=== PATIENT | male | born 1960 | race Hispanic/Latino ===

== ENCOUNTER 2019-11-13 10:36 | Inpatient (IN) | payer OTHER ==
[~2019-11-13] VITALS: Ht 170.2 cm; Wt 89.2 kg
[2019-11-13] MEDS ORDERED: METF-839 PO (10:49)
[2019-11-13] MEDS ORDERED: GENV1TAB PO (10:49)
[2019-11-13] MEDS ORDERED: COZA50TA PO (10:49)
[2019-11-13] MEDS ORDERED: AMLO25TA PO (10:49)
[2019-11-13] MEDS ORDERED: PROV108A INH (10:49)
[2019-11-13] MEDS ORDERED: DILT180C78 PO (10:49)
[2019-11-13] MEDS ORDERED: ASPI81CH33 PO (10:49)
[2019-11-13] MEDS ORDERED: NS 2,610 ML in IV 1 EA IV ONE (11:30)
[2019-11-13 11:39] LABS: HEMATOCRIT 46.1 % (42.0-52.0); HEMOGLOBIN 15.4 g/dl (13.5-17.5); MEAN CORPUSCULAR HEMOGLOBIN 27.2 pg (27.0-33.0); MEAN CORPUSCULAR HGB CONC 33.4 g/dl (32.0-36.5); MEAN CORPUSCULAR VOLUME 81.4 fl (80.0-96.0); PLATELET COUNT, AUTOMATED 182 10^3/uL (150-450); RED BLOOD COUNT 5.66 10^6/uL (4.30-6.10); WHITE BLOOD COUNT 24.8 10^3/uL (4.0-10.0)
--- NOTE | 2019-11-13 12:06 | REP ---
Right lower extremity Duplex Doppler venous ultrasound: Real time compression and duplex Doppler interrogation of the right lower extremity deep venous system is performed. The right common femoral, superficial femoral and popliteal veins are fully compressible with transducer pressure and demonstrate normal spontaneous and phasic flow, without evidence of deep venous thrombosis. Impression: No evidence of deep venous thrombosis of the right lower extremity femoral popliteal venous system. Multiple lymph nodes are seen in the right inguinal region, all demonstrating fatty yane. The largest measures 4.5 x 1.4 x 3.2 cm. Electronically Signed by Wiliam Gonzales MD 11/13/2019 11:57 A
[2019-11-13 12:08] LABS: ERYTHROCYTE SEDIMENTATION RATE 50 mm/hr (0-20)
[2019-11-13 12:19] LABS: LYMPHOCYTES 6 % (16-44); MONOCYTES 1 % (0-5); NEUTROPHILS 91 % (28-66); PLATELET ESTIMATE NORMAL (NORMAL)
[2019-11-13 12:20] LABS: BLOOD UREA NITROGEN 24 MG/DL (7-18); CALCIUM LEVEL 8.4 MG/DL (8.5-10.1); CARBON DIOXIDE LEVEL 25 MEQ/L (21-32); CHLORIDE LEVEL 99 MEQ/L (98-107); CREATININE FOR GFR 1.13 MG/DL (0.70-1.30); GLOMERULAR FILTRATION RATE > 60.0 (>56); GLUCOSE, FASTING 260 MG/DL (70-100); POTASSIUM SERUM 3.2 MEQ/L (3.5-5.1); SODIUM LEVEL 133 MEQ/L (136-145)
[2019-11-13] MEDS ORDERED: VANCOMYCIN HCL 1,000 MG, VIAL MATE ADAPTER 1 EACH in D5W 250 ML IV ONE (12:30)
[2019-11-13] MEDS ORDERED: VANCOMYCIN HCL 1,750 MG in D5W 250 ML IV ONE (12:30)
[2019-11-13] MEDS ORDERED: VANCOMYCIN HCL 750 MG, VIAL MATE ADAPTER 1 EACH in D5W 250 ML IV ONE (12:30)
[2019-11-13] MEDS ORDERED: METOPROLOL 5 MG/5 ML VIAL IV STA (12:32)
[2019-11-13] MEDS ORDERED: CEFT1INJ5 IM (12:44)
[2019-11-13] MEDS ORDERED: AMLO1TAB25 PO (12:44)
[2019-11-13] MEDS ORDERED: ACET-908 PO (12:44)
[2019-11-13] MEDS ORDERED: IBUP200T45 PO (12:44)
[2019-11-13] MEDS ORDERED: DILT12SRCA PO (12:44)
[2019-11-13] MEDS ORDERED: ASPI32ECTA PO (12:44)
[2019-11-13] MEDS ORDERED: ALBUTEROL 90 MCG/ACT 8GM HFA INHALER INH PRN (12:45)
[2019-11-13] MEDS ORDERED: GLUCAGON INJ 1MG VIAL SC PRN (12:45)
[2019-11-13] MEDS ORDERED: GLUCOSE 4GM CHEW TABLET PO PRN (12:45)
[2019-11-13] MEDS ORDERED: POTASSIUM CHLORIDE 10 MEQ SR TABLET PO ONE (12:45)
[2019-11-13] MEDS ORDERED: DEXTROSE 50% 50 ML SYRINGE IV PRN (12:45)
[2019-11-13] MEDS ORDERED: NS 1,000 ML IV SCH (12:45)
[2019-11-13] MEDS ORDERED: NS 1,000 ML IV ONE (12:45)
[2019-11-13 12:59] LABS: INR 1.07; PROTHROMBIN TIME 13.6 SECONDS (11.8-14.0)
[2019-11-13 13:00] LABS: PARTIAL THROMBOPLASTIN TIME 29.8 SECONDS (25.0-38.4)
[2019-11-13 13:26] LABS: CK-MB VALUE MASS 3.7 NG/ML (<3.6); CPK CREATINE PHOSPHOKINASE 575 U/L (39-308); MB/CK RELATIVE INDEX 0.64 (< OR =4); NT-PRO BNP 4008 PG/ML (<125); TROPONIN I < 0.02 NG/ML (< 0.10)
--- NOTE | 2019-11-13 14:03 | PHACANCOPD ---
PHARMACY VANCOMYCIN DOSING Pt Demographics Demographics Patient Age:59 , Weight:86.900 , Gender: male Adjusted Body Weight Date: 11/13/19, Adjusted Body Weight: Kg Events Past 24 Hours Events Past 24 Hours: NO: Dialysis, Diuretic Therapy, Change in CrCl, Fever, Elevation in WBC, Pending Diagnostics, Pending Procedures, Other Vancomycin Vancomycin indication: right leg cellulitis Vancomycin Target Ranges: 10-20 mcg/ml Vancomycin Load Y/N: Yes Load Dose Date Time Vancomycin Load Dose: 1.75g Date:11/13/19 Time:12:30 Vancomycin Dose Date: 11/13/19. Current Vancomycin Dose: [1g iv q12h] Intermittent Dosing?: No Labs Labs Item Value Date Time White Blood Count 24.8 10^3/uL H 11/13/19 1120 Creatinine 1.13 MG/DL 11/13/19 1120 C-Reactive Protein, Quantitative 25.90 MG/DL H 11/13/19 1120 Micro Microbiology 11/13/19 Blood Culture, Received Pending 11/13/19 Blood Culture, Received Pending Creatinine Clearance Date:11/13/19. Creatinine Clearance: [65ml/min]. Assessment and Plan Maintaining Current Dose?: Yes Reason for dose change: No Dose Change Pharmacist Note Pharmacist Note Date: 11/13/19. Pharmacist note: PT is a 59 year old male being treated for right leg cellulitis goal trough 10-20mcg/ml. The patient has not been treated with vancomycin her at [facility] in the past. To achieve goal a 1.75g loading dose was started in the ER today @12:30. Maintenance therapy will consist of 1g IV every 12 hours starting 11/13 @01:00. We will continue to monitor and adjust the dose as needed. LASHELL ENRIQUEZ [facility]ARM[facility] Nov 13, 2019 14:03
[2019-11-13 14:30] VITALS: BP 124/69
--- NOTE | 2019-11-13 14:44 | HPE ---
DATE OF ADMISSION: 11/13/2019 CHIEF COMPLAINT: Right leg pain, swelling, and redness. HISTORY OF PRESENTING ILLNESS: This is a 59-year-old male with history of atrial fibrillation, chronic left bundle branch block, mild MR, TR with normal left ventricle (LV) function on echocardiogram January 2019, asthma, diabetes, HIV, hepatitis C, noncompliant with medications, smoker, hypertension. Currently resides at the [facility] when he noted on Monday to have increasing redness, pain, and swelling of the right leg, which started by the malleolus and started to spread upwards, now involving the entire leg up to the knee. The patient said that there was increased weeping and drainage on the medial aspect of the leg. He was started in intramuscular Rocephin on 11/11/2019 but has had no significant improvement. He denied any fever or chills. At the facility, had not taken any pain medications. He said that it was pruritic, and he did scratch the area. He had a similar episode last year, where he was treated with oral antibiotics for 7 days, and abated. The patient had been walking with a cane due to difficulty with pain and bearing weight on it. He otherwise denies any purulent drainage at the site. The patient otherwise denies any chills, shortness of breath, chest pain, pressure, tightness, lightheadedness, or dizziness. Denies any diarrhea, nausea, vomiting, dysuria, urgency, frequency, polydipsia, polyphagia, changes in vision, rhinorrhea, depression, insomnia. All other systems otherwise negative. In the emergency room (ER), he was noticed to have a white count of 24.8, afebrile, sedimentation rate of 50, lactic acid of 2.5, CRP of 25.9. The patient was admitted for right lower extremity cellulitis. Ultrasound was negative for a deep venous thrombosis (DVT). PAST MEDICAL HISTORY: Mild MR. Mild TR. Left bundle branch block, chronic. Chronic atrial fibrillation. Asthma. Diabetes. HIV. Hepatitis. Active smoker. Hypertension. PAST SURGICAL HISTORY: None. SOCIAL HISTORY: Currently lives at the [facility] as an inmate. Has been smoking cigarettes, a pack a day since the age of 14. Currently, 2-3 cigarettes. Uses recreational heroin. 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 ALLERGIES: No known drug allergies. HOME MEDICATIONS: - Norvasc 10 mg daily - ceftriaxone 1 gram intramuscular (IM) daily - ibuprofen 600 every 6 as needed - losartan 50 daily - metformin 500 twice a day - diltiazem 120 twice a day - Genvoya one tablet daily - acetaminophen 650 four times a day as needed - proventil two puffs inhaled four times a day as needed - aspirin 325 daily FAMILY HISTORY: Mother age 50, unknown medical problems. Three brothers, three sisters in [place], unknown medical problems. Father alive at the age of 85 with diabetes and hypertension, lives in [place]. REVIEW OF SYSTEMS: Per history of present illness (HPI); 12-point system otherwise negative. PHYSICAL EXAMINATION: Temperature is 96.8, pulse 69, respiratory rate 22, blood pressure 91/60, 100% on room air. Generally, the patient is awake, alert, oriented to person, place, and time. Answering questions appropriately. Anicteric sclerae. No jaundice. No cervical lymphadenopathy, thyromegaly, or jugular venous distention. Dry mucous membranes. Multiple tattoos around the neck, bilateral upper extremities. LUNGS: Are clear to auscultation. No wheezing, rales, or rhonchi. Air entry is equal. No adventitious breath sounds. HEART: S1, S2, irregularly irregular and tachycardic. No murmurs, rubs, or gallops noted. ABDOMEN: Is soft, nontender, nondistended. Positive bowel sounds in his four quadrants. No hepatosplenomegaly, abdominal bruits, or fluid wave. EXTREMITIES: 2+ pitting edema right lower extremity with erythema, serosanguineous drainage along with open venous ulcers on the jim. Left lower extremity has 1+ pitting edema and chronic venous stasis dermatitis. LABORATORY DATA: White count 24.8, hemoglobin 15, hematocrit 46, platelet count 182, 91% neutrophils, 2 bands, sedimentation rate of 50. Sodium 133, potassium 3.2, chloride 99, bicarbonate 25, BUN 24, creatinine 1.13, glucose 260, lactic acid 2.5, calcium 8.4, total CK 575, MB fraction 3.7, troponin less than 0.02, CRP of 25.9. INR 1.07. Blood cultures pending. Venous Doppler: No DVT of the lower extremity. Multiple lymph nodes seen in right inguinal region, all demonstrating fatty yane measuring 4.5 x 1.[address] of right tibia/fibula without contrast: Pending report. ASSESSMENT AND PLAN: This is a 59-year-old diabetic, chronic atrial fibrillation (AFib), mild MR, TR, chronic left bundle, asthma, type 2 diabetes, HIV, hepatitis C, smoker, hypertension, correctional facility inmate at [place], presents with 4-day history of worsening erythema, tenderness, and swelling of the right lower extremity, treated with intramuscular Rocephin since 11/11/2019, 1 gram daily, with no improvement. IMPRESSION: 1. Sepsis secondary to right lower extremity cellulitis. The patient had received 3 days of IM Rocephin without any improvement. Currently, on intravenous (IV) vancomycin, managed by pharmacy. Strict intake and output (I and O), daily weights, and daily medical panel to adjust renally if needed. Methicillin-resistant Staphylococcus aureus (MRSA) and polymerase chain reaction (PCR) screen have been ordered. Downgrade to cefazolin if MRSA negative or nafcillin. The patient has no known drug allergies. Continue to monitor for improvement. Elevate the lower extremity on two pillows at all times when the patient is supine. Activity as tolerated. For pain control, IV Toradol with intravenous fluids. 2. Atrial fibrillation with rapid ventricular response (RVR). The patient had not taken his Cardizem and was noncompliant at the detention. He is continued on aspirin 325 daily. Will hold off on the patient's Norvasc due to needing to rate control his atrial fibrillation (AFib) for now. Telemetry monitoring. Once blood pressure is higher than 140, will resume the patient's Norvasc and losartan. 3. Type 2 diabetes. Check A1c. Continue on sliding scale for now. Levemir insulin 10 units daily. Hold for a sugar less than 150. Consistent- carbohydrate diet. Insulin sliding scale. Fingersticks before food and nightly. Adjust long-acting insulin as needed. Check A1c, lipid profile in the morning and thyroid-stimulating hormone (TSH). 4. Active smoking. Tobacco cessation counseling. Nicotine patch. 5. History of heroin use. Cessation counseling has been provided. Outpatient rehabilitation once the patient is released from detention. 6. Deep venous thrombosis prophylaxis. Currently just on aspirin. Will give Lovenox 40 subcutaneous daily. Activity as tolerated. CODE STATUS: Is FULL CODE. DIET: Is consistent-carbohydrate. MTDD
[2019-11-13] MEDS: NICOTINE 7 MG/24 HR TRANSDERMAL TD SCH (14:48)
[2019-11-13] MEDS: ENOXAPARIN 40MG/0.4ML SYRINGE (J1650 PER 10MG) SC SCH (14:48)
--- NOTE | 2019-11-13 16:07 | REP ---
CT RIGHT LOWER LEG: CT right lower leg performed in the axial plane without contrast. Sagittal and coronal reconstruction images are performed. There is mild narrowing of the medial knee joint. There is mild calcification at the superior and inferior poles of the patella at tendinous insertion sites. There appear to be old avulsion fractures of the medial and lateral malleoli. The ankle mortise is anatomic. No acute fracture or dislocation is seen. There is no evidence of osseous destruction or periosteal reaction. There is diffuse soft tissue edema. I suspect diffuse cellulitis. No focal fluid collection is seen. Electronically Signed by Wiliam Gonzales MD 11/14/2019 09:35 A
[2019-11-13] MEDS: HumaLOG INSULIN (NovoLOG) PER UNIT SC SCH ×2 (17:16→19:58)
[2019-11-13] MEDS: KETOROLAC 30 MG/ML 1ML VIAL IV PRN (19:57)
[2019-11-13] MEDS ORDERED: LEVEMIR (INSULIN DETEMIR) 1 UNITS/0.01ML SC SCH (21:00)
[2019-11-13 22:00] VITALS: BP 129/72
[2019-11-13] MEDS: UNRESOLVED PATIENT OWN MED ORDER XX SCH (22:51)
--- NOTE | 2019-11-13 23:27 | REP ---
REASON: Dyspnea. PRIORS: None. The technique utilized in obtaining the radiograph has magnified the cardiac silhouette and accentuated the interstitial markings. There is cardiomegaly, accentuated by technique. The interstitial markings are mildly diffusely increased, accentuated by technique. There are no patchy opacities or pleural effusions seen on this limited portable exam. The osseous structures are within normal limits. IMPRESSION: Cardiomegaly. Interstitial markings as described above. I cannot rule out the possibility of mild interstitial edema. Upright PA and lateral views of the chest are recommended. Electronically Signed by Timur Boyd DO 11/14/2019 11:24 A
--- NOTE | 2019-11-14 00:19 | ECGEPIP ---
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
[2019-11-14] MEDS ORDERED: VANCOMYCIN HCL 1,000 MG, VIAL MATE ADAPTER 1 EACH in D5W 250 ML IV SCH (01:00)
[2019-11-14] MEDS: KETOROLAC 30 MG/ML 1ML VIAL IV PRN ×3 (01:59→21:26)
[2019-11-14 06:00] VITALS: BP 132/88
[2019-11-14 06:20] LABS: HEMATOCRIT 37.6 % (42.0-52.0); MEAN CORPUSCULAR HEMOGLOBIN 27.3 pg (27.0-33.0); MEAN CORPUSCULAR HGB CONC 33.5 g/dl (32.0-36.5); MEAN CORPUSCULAR VOLUME 81.4 fl (80.0-96.0); PLATELET COUNT, AUTOMATED 185 10^3/uL (150-450); RED BLOOD COUNT 4.62 10^6/uL (4.30-6.10)
[2019-11-14 06:25] LABS: HEMOGLOBIN 12.6 g/dl (13.5-17.5)
[2019-11-14 06:48] LABS: BLOOD UREA NITROGEN 14 MG/DL (7-18); CALCIUM LEVEL 7.4 MG/DL (8.5-10.1); CARBON DIOXIDE LEVEL 26 MEQ/L (21-32); CHLORIDE LEVEL 105 MEQ/L (98-107); CHOLESTEROL LEVEL 113 MG/DL (<200); CHOLESTEROL RISK RATIO 10.272 (<5); CREATININE FOR GFR 0.81 MG/DL (0.70-1.30); GLOMERULAR FILTRATION RATE > 60.0 (>56); GLUCOSE, FASTING 219 MG/DL (70-100); HDL CHOLESTEROL 11 MG/DL (>40); LDL CHOLESTEROL 68 MG/DL (<100); NON-HDL-C 102 MG/DL; POTASSIUM SERUM 3.3 MEQ/L (3.5-5.1); SODIUM LEVEL 139 MEQ/L (136-145); THYROID STIMULATING HORMONE 0.841 uIU/ML (0.358-3.740); TRIGLYCERIDES LEVEL 169 MG/DL (<150)
[2019-11-14 06:58] LABS: ATYPICAL LYMPH 5 % (0-5); LYMPHOCYTES 11 % (16-44); MONOCYTES 4 % (0-5); NEUTROPHILS 77 % (28-66)
[2019-11-14 06:59] LABS: PLATELET ESTIMATE NORMAL (NORMAL)
[2019-11-14 07:00] LABS: DOHLE BODIES 1+; TOXIC GRANULATION 1+
[2019-11-14 07:09] LABS: HEMOGLOBIN A1c 9.6 %
[2019-11-14] MEDS: HumaLOG INSULIN (NovoLOG) PER UNIT SC SCH ×4 (07:30→20:59)
[2019-11-14 07:33] LABS: MAGNESIUM LEVEL 1.7 MG/DL (1.8-2.4)
[2019-11-14] MEDS: ASPIRIN ENTERIC 325 MG TAB PO SCH (08:00)
[2019-11-14] MEDS ORDERED: metFORMIN (GLUCOPHAGE) 500 MG TAB PO SCH (08:00)
[2019-11-14] MEDS: ENOXAPARIN 40MG/0.4ML SYRINGE (J1650 PER 10MG) SC SCH (08:06)
[2019-11-14] MEDS: NICOTINE 7 MG/24 HR TRANSDERMAL TD SCH (08:07)
[2019-11-14] MEDS ORDERED: POTASSIUM CHLORIDE 10 MEQ SR TABLET PO ONE (09:00)
--- NOTE | 2019-11-14 10:45 | IPNPDOC ---
Text Note Date of Service The patient was seen on 11/14/19. NOTE Subjective: Patient seen and examined at bedside. No new medical complaints. Denies any numbness or weakness with his RLE. He denies any trauma to his RLE, feels this may have started with a spider bite. Objective: General: NAD, lying comfortably in bed HEENT: NC/AT, EOMI Lungs: CTA B/L Heart: +S1S2, RRR Abd: soft, NT, +BS Ext: diffuse RLE cellulitis with purulent discharge A/P: 59 yo male, currently incarcerated at [facility], presents for one week history worsening RLE cellulitis with purulent discharge. Started on IM Rocephin 11/11/19 with no improvement. Denies trauma, possibility of spider bite. PMHx a-fib, LBBB, DM, asthma, HIV, hep C, medical non-compliance, nicotine abuse, HTN. # Sepsis/RLE cellulitis - continue IV Vancomycin - wound cultures/gram stain pending - ID c/s pending - trend ESR/CRP - IV fluids #afib/RVR - patient had not taken his Cardizem and [facility] the [facility] - continue CCB - continue ASA 325 he has been receiving for a/c - telemetry monitoring #DM - A1C noted - poor glucose control - Continue on sliding scale for now - reported patient refuses insulin therapy #nicotine abuse - Tobacco cessation counseling. Nicotine patch. #History of heroin use. Cessation counseling has been provided. Outpatient rehabilitation #DVT prophylaxis VS,Fishbone, I+O VS, Fishbone, I+O Laboratory Tests 11/13/19 11:20 11/14/19 05:46 Vital Signs Date Time Temp Pulse Resp B/P (MAP) Pulse Ox O2 Delivery O2 Flow Rate FiO2 11/14/19 08:01 122 137/90 11/14/19 06:00 98.0 18 99 Room Air I&O- Last 24 Hours up to 6 AM 11/14/19 06:00 Intake Total 3725 ml Output Total 400 ml Balance 3325 ml JUAN LUIS EPSTEIN MD Nov 14, 2019 10:45
[2019-11-14] MEDS ORDERED: MAG SULF 1GM/100ML (MAG RUN) 1 GM in IV 1 EA IV ONE (11:00)
--- NOTE | 2019-11-14 13:10 | ECGEPIP ---
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
[2019-11-14] MEDS: VANCOMYCIN HCL 1,000 MG, VIAL MATE ADAPTER 1 EACH in D5W 250 ML IV SCH ×2 (13:49→22:11)
[2019-11-14 14:00] VITALS: BP 136/89
[2019-11-14] MEDS ORDERED: VANCOMYCIN HCL 500 MG in D5W MINI-BAG PLUS 100 ML IV ONE (15:00)
[2019-11-14 22:00] VITALS: BP 159/96
[2019-11-15] MEDS: UNRESOLVED PATIENT OWN MED ORDER XX SCH ×2 (00:01→23:02)
[2019-11-15 06:00] VITALS: BP 138/79
[2019-11-15] MEDS: VANCOMYCIN HCL 1,000 MG, VIAL MATE ADAPTER 1 EACH in D5W 250 ML IV SCH ×3 (06:05→21:59)
[2019-11-15 06:09] LABS: HEMATOCRIT 37.6 % (42.0-52.0); HEMOGLOBIN 12.5 g/dl (13.5-17.5); MEAN CORPUSCULAR HEMOGLOBIN 27.5 pg (27.0-33.0); MEAN CORPUSCULAR HGB CONC 33.2 g/dl (32.0-36.5); MEAN CORPUSCULAR VOLUME 82.6 fl (80.0-96.0); PLATELET COUNT, AUTOMATED 211 10^3/uL (150-450); RED BLOOD COUNT 4.55 10^6/uL (4.30-6.10); WHITE BLOOD COUNT 15.5 10^3/uL (4.0-10.0)
[2019-11-15 06:28] LABS: BLOOD UREA NITROGEN 7 MG/DL (7-18); CALCIUM LEVEL 7.9 MG/DL (8.5-10.1); CARBON DIOXIDE LEVEL 26 MEQ/L (21-32); CHLORIDE LEVEL 103 MEQ/L (98-107); CREATININE FOR GFR 0.64 MG/DL (0.70-1.30); GLOMERULAR FILTRATION RATE > 60.0 (>56); GLUCOSE, FASTING 210 MG/DL (70-100); SODIUM LEVEL 136 MEQ/L (136-145)
[2019-11-15 06:56] LABS: EOSINOPHILS 2 % (0-3); LYMPHOCYTES 11 % (16-44); MONOCYTES 4 % (0-5); NEUTROPHILS 82 % (28-66); PLATELET ESTIMATE NORMAL (NORMAL)
[2019-11-15] MEDS: HumaLOG INSULIN (NovoLOG) PER UNIT SC SCH ×4 (07:30→21:00)
[2019-11-15 07:53] LABS: MAGNESIUM LEVEL 1.6 MG/DL (1.8-2.4)
[2019-11-15] MEDS: ASPIRIN ENTERIC 325 MG TAB PO SCH (08:39)
[2019-11-15] MEDS: MAG SULF 1GM/100ML (MAG RUN) 1 GM in IV 1 EA IV SCH ×2 (08:39→10:09)
[2019-11-15] MEDS: KETOROLAC 30 MG/ML 1ML VIAL IV PRN ×2 (08:40→18:20)
[2019-11-15] MEDS: ENOXAPARIN 40MG/0.4ML SYRINGE (J1650 PER 10MG) SC SCH (08:40)
[2019-11-15] MEDS: NICOTINE 7 MG/24 HR TRANSDERMAL TD SCH (08:40)
[2019-11-15] MEDS ORDERED: POTASSIUM CHLORIDE 10 MEQ SR TABLET PO ONE (09:00)
--- NOTE | 2019-11-15 12:56 | IPNPDOC ---
Text Note Date of Service The patient was seen on 11/15/19. NOTE Subjective: Patient seen and examined at bedside. No new medical complaints. Denies any numbness or weakness with his RLE. Notes poor appetite. Fevers overnight. Objective: General: NAD, lying comfortably in bed HEENT: NC/AT, EOMI Lungs: CTA B/L Heart: +S1S2, RRR Abd: soft, NT, +BS Ext: bandages in place RLE; appears to have extended slightly past previously demarcated area A/P: 59 yo male, currently incarcerated at [facility], presents for one week history worsening RLE cellulitis with purulent discharge. Started on IM Rocephin 11/11/19 with no improvement. Denies trauma, possibility of spider bite. PMHx a-fib, LBBB, DM, asthma, HIV, hep C, medical non-compliance, nicotine abuse, HTN. # Sepsis/RLE cellulitis - continue IV Vancomycin - repeat wound cultures/gram stain pending - ID c/s appreciated - trend ESR/CRP - IV fluids #afib/RVR - patient had not taken his Cardizem and was noncompliant at the longterm - continue CCB - continue ASA 325 he has been receiving for a/c - telemetry monitoring #DM - A1C noted - poor glucose control - Continue on sliding scale for now - reported patient refuses insulin therapy #nicotine abuse - Tobacco cessation counseling. Nicotine patch. #History of heroin use. Cessation counseling has been provided. Outpatient rehabilitation #DVT prophylaxis VS,Fishbone, I+O VS, Fishbone, I+O Laboratory Tests 11/15/19 05:31 Vital Signs Date Time Temp Pulse Resp B/P (MAP) Pulse Ox O2 Delivery O2 Flow Rate FiO2 11/15/19 08:39 112 138/79 11/15/19 06:00 100.0 18 97 Room Air I&O- Last 24 Hours up to 6 AM 11/15/19 05:59 Intake Total 1790 ml Output Total 0 ml Balance 1790 ml JUAN LUIS EPSTEIN MD Nov 15, 2019 12:56
[2019-11-15] MEDS: NS 1,000 ML IV SCH (13:47)
[2019-11-15 14:00] VITALS: BP 132/79
[2019-11-15] MEDS ORDERED: VANCOMYCIN HCL 1,000 MG, VIAL MATE ADAPTER 1 EACH in D5W 250 ML IV ONE (15:00)
--- NOTE | 2019-11-15 17:32 | CR ---
DATE OF CONSULTATION: 11/14/2019 REASON FOR CONSULTATION: HIV and right lower extremity cellulitis. HISTORY OF PRESENT ILLNESS: Mr. Church is a 59-year-old inmate from [facility]. The patient has developed right lower extremity cellulitis with increased pain and redness, difficulty stepping on his foot since last Monday. The patient usually is able to exercise and to push-ups. He noticed increased redness, weeping and drainage. He received three intramuscular (IM) injections of Rocephin on 11/11/2019 though 11/13/2019 without any improvement. He denied having any fever or chills. The patient stated his leg was pruritic. He is not sure if he had any bites. He stated he had a similar episode about a year ago which resolved after seven days of antibiotic but this is much worse. He has no history of deep vein thromboses (DVTs). The patient had so much pain he had to walk with a cane. He denied any chest pain or shortness of breath. No headache. No nausea, vomiting or diarrhea. No urinary symptoms. White count was quite elevated at 25,000 on admission. PAST MEDICAL HISTORY: Significant for: 1. HIV, well-controlled, diagnosed in 1985, states his CD-4 count is over 1000 on Genvoya. 2. Mitral regurgitation and tricuspid regurgitation with normal ejection fraction and a chronic left bundle branch block. 3. Chronic atrial fibrillation. 4. Asthma. 5. Diabetes. 6. History of hepatitis C. 7. Tobacco abuse. 8. Hypertension. PAST SURGICAL HISTORY: None. SOCIAL HISTORY: He lives at [facility]. He smokes a pack a day of cigarettes since the age of 14, currently smokes 2-3 cigarettes. History of heroin abuse. 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 ALLERGIES: No known drug allergies. MEDICATIONS: - Norvasc 10 mg daily - ibuprofen 600 mg every six hours as needed - losartan 50 mg daily - metformin 500 mg twice a day - diltiazem 120 mg twice a day - Genvoya one tablet daily - Tylenol as needed - Proventil two puffs inhaled every four hours as needed - aspirin 325 mg daily FAMILY HISTORY: Mother at age of 50. Brothers and sisters are in [place]. Father has hypertension and diabetes. REVIEW OF SYSTEMS: Other than leg pain and difficulty walking, the patient has no other symptoms that he complained about. PHYSICAL EXAMINATION: Healthy-looking, [place] gentleman in no acute distress. VITAL SIGNS: Temperature is 99.2, pulse 116, respirations 20, blood pressure 136/89, oxygen saturation 96% on room air. HEART: Normal S1, S2, distant, irregular. No murmurs appreciated, rubs or gallops. Lungs have few exterior rhonchi bilaterally. No wheezes or rales. ABDOMEN: Soft, nontender. No hepatosplenomegaly. BACK: No costovertebral angle (CVA) or lumbosacral tenderness. EXTREMITIES: Left leg has chronic venous stasis changes but no clubbing, cyanosis or edema, +2 dorsalis pedis pulses bilaterally. Right leg has no significant swelling up to the knee with erythema and serosanguineous discharge. There are open areas from significant, oozing. There is no ulcer noted but he has vertical cracks throughout from the edema. LABORATORY DATA: White count of 17, hemoglobin 12.6, hematocrit 37.6, platelets 185, 77% neutrophils, 3% bands, 11% lymphocytes. ESR 50. Sodium 139, potassium 3.3, chloride 105, bicarbonate 26, BUN 14, creatinine 0.81, glucose 219, hemoglobin A1c 9.6, lactic acid on admission was 2.5, currently 1.6, calcium 7.4, magnesium 1.7. Blood cultures two sets are no growth after 24 hours. Gram-stain has a few epithelial cells. No organisms seen. Culture is pending. Extremity CT done on 11/13/2019 showed no acute fracture or dislocation. No osseous destruction. No periosteal reaction, just soft tissue edema. IMPRESSION: This is a 59-year-old gentleman with HIV, diabetes who has a history of lower extremity cellulitis a year ago and now presents with a recurrent episode that did not respond to intramuscular ceftriaxone for three days. Possibility of methicillin-resistant Staphylococcus aureus (MRSA). The patient is on IV vancomycin at a dose of 1 gram every eight hours. I agree with that choice. His MRSA screen is negative but this is possibly MRSA infection. PLAN: Continue with IV vancomycin 1 gram every eight hours. Wait for results of wound culture and depending on that antibiotic choice will be decided. Continue from an HIV standpoint on Genvoya one tablet daily. The patient's CD-4 count is over 1000. This does not need to further workup or laboratories while he is in the hospital. The case has been discussed with Dr. Dorantes who has agreed with the plan. As far as dressing change, I recommended we use an OptiLock and Coban dressing to avoid scratching, allow for drainage and decreased swelling with the Coban.
[2019-11-15 22:00] VITALS: BP 133/82
--- NOTE | 2019-11-15 23:32 | IPN ---
DATE: 11/15/2019 The patient is doing slightly better today, but he complains of decreased appetite since he has been sick. He has had no nausea, vomiting or diarrhea but just fullness. He had a maximum temperature (T max) of 101.1 yesterday. Pain in his right leg persists. The dressing was changed a half hour before I got to the room and therefore, was not able to see his right lower extremity. Hip and knee range of motion normal. Ankle range of motion normal. LABORATORY DATA: White count is 15.5 down from 25,000, hemoglobin 12.5, hematocrit 37.6, platelets 211, 82% neutrophils, 11% lymphocytes. Sodium 136, potassium 3, chloride 103, bicarbonate 26, BUN 7, creatinine 0.64, glucose 210, calcium 7.9, magnesium 1.6, CRP 12.4 down from 25.9. Wound culture is pending from 11/13 and a repeat wound culture was done today again. Blood cultures times two sets are no growth after 24 hours. On physical exam, temperature is 100, pulse 112, respirations 18, blood pressure 138/79, oxygen saturation (O2 sat) 97% on room air. Heart: Normal S1, S2, irregular. No murmurs appreciated. Lungs: Clear. No wheezes, rales or rhonchi. Abdomen: Morbidly obese, soft, nontender. Back: No costovertebral angle tenderness. Extremities: Knee range of motion normal. Mild erythema along the medial thigh, diffuse erythema below the knee to the ankle, +2 dorsalis pedis pulses bilaterally. IMPRESSION: 1. Right lower extremity cellulitis, on IV vancomycin. Had failed 3 days of intramuscular (IM) Rocephin at the longterm. Wound culture still pending. CBC and CRP improving. Continue current management. 2. History of HIV with CD-4 count over 1000 and undetected viral load. Doing well on Genvoya. The patient has not received his medication since it is not available. 3. History of chronic hepatitis C, treated with Harvoni over 3 years ago while he was in [facility]. PLAN: Continue IV vancomycin 1 gram every 8 hours. Vancomycin trough was 4.8 on 11/14/2019 and therefore dose was increased. Monitor culture. Depending on results, will decide on home antibiotics.
[2019-11-16] MEDS: KETOROLAC 30 MG/ML 1ML VIAL IV PRN ×4 (02:28→21:14)
[2019-11-16] MEDS: VANCOMYCIN HCL 1,000 MG, VIAL MATE ADAPTER 1 EACH in D5W 250 ML IV SCH ×3 (05:32→20:01)
[2019-11-16 06:00] VITALS: BP 134/87
[2019-11-16 06:32] LABS: HEMATOCRIT 37.9 % (42.0-52.0); HEMOGLOBIN 12.2 g/dl (13.5-17.5); MEAN CORPUSCULAR HEMOGLOBIN 26.8 pg (27.0-33.0); MEAN CORPUSCULAR HGB CONC 32.2 g/dl (32.0-36.5); MEAN CORPUSCULAR VOLUME 83.3 fl (80.0-96.0); PLATELET COUNT, AUTOMATED 232 10^3/uL (150-450); RED BLOOD COUNT 4.55 10^6/uL (4.30-6.10); WHITE BLOOD COUNT 13.2 10^3/uL (4.0-10.0)
[2019-11-16 06:45] LABS: BLOOD UREA NITROGEN 7 MG/DL (7-18); CALCIUM LEVEL 7.7 MG/DL (8.5-10.1); CARBON DIOXIDE LEVEL 28 MEQ/L (21-32); CHLORIDE LEVEL 103 MEQ/L (98-107); CREATININE FOR GFR 0.72 MG/DL (0.70-1.30); GLOMERULAR FILTRATION RATE > 60.0 (>56); GLUCOSE, FASTING 183 MG/DL (70-100); MAGNESIUM LEVEL 1.7 MG/DL (1.8-2.4); POTASSIUM SERUM 3.6 MEQ/L (3.5-5.1); SODIUM LEVEL 136 MEQ/L (136-145)
[2019-11-16] MEDS: NS 1,000 ML IV SCH (06:55)
[2019-11-16] MEDS: HumaLOG INSULIN (NovoLOG) PER UNIT SC SCH ×4 (07:16→21:00)
[2019-11-16 07:28] LABS: ATYPICAL LYMPH 2 % (0-5); LYMPHOCYTES 14 % (16-44); METAMYELOCYTES 1 % (0-0); MONOCYTES 5 % (0-5); NEUTROPHILS 73 % (28-66)
[2019-11-16 07:29] LABS: PLATELET ESTIMATE NORMAL (NORMAL)
[2019-11-16 07:30] LABS: ANISOCYTOSIS 1+
[2019-11-16] MEDS: MAG SULF 1GM/100ML (MAG RUN) 1 GM in IV 1 EA IV SCH ×2 (08:33→10:10)
[2019-11-16] MEDS: ENOXAPARIN 40MG/0.4ML SYRINGE (J1650 PER 10MG) SC SCH (08:34)
[2019-11-16] MEDS: ASPIRIN ENTERIC 325 MG TAB PO SCH (08:34)
[2019-11-16] MEDS: NICOTINE 7 MG/24 HR TRANSDERMAL TD SCH (08:35)
--- NOTE | 2019-11-16 09:34 | IPNPDOC ---
Text Note Date of Service The patient was seen on 11/16/19. NOTE Subjective: Patient seen and examined at bedside. No new medical complaints. Denies any numbness or weakness with his RLE. No fevers. Appetite has improved. Objective: General: NAD, lying comfortably in bed HEENT: NC/AT, EOMI Lungs: CTA B/L Heart: +S1S2, RRR Abd: soft, NT, +BS Ext: bandages in place RLE; appears to have improved. A/P: 59 yo male, currently incarcerated at [facility], presents for one week history worsening RLE cellulitis with purulent discharge. Started on IM Rocephin 11/11/19 with no improvement. Denies trauma, possibility of spider bite. PMHx a-fib, LBBB, DM, asthma, HIV, hep C, medical non-compliance, nicotine abuse, HTN. # Sepsis/RLE cellulitis - continue IV Vancomycin - repeat wound cultures/gram stain pending - ID c/s appreciated - trend ESR/CRP #afib/RVR - patient had not taken his Cardizem and was noncompliant at the residential - continue CCB - continue ASA 325 he has been receiving for a/c - telemetry monitoring #HIV - as per ID - assistance appreciated - has been responding well to his home meds, which are not available inpatient #Hep C - previously treated #DM - A1C noted - poor glucose control - Continue on sliding scale for now - reported patient refuses insulin therapy #nicotine abuse - Tobacco cessation counseling. Nicotine patch. #History of heroin use. Cessation counseling has been provided. Outpatient rehabilitation #DVT prophylaxis Dispo: pending results of cultures to modify abx; continue vanco for now; id f/u VS,Fishbone, I+O VS, Fishbone, I+O Laboratory Tests 11/16/19 05:22 Vital Signs Date Time Temp Pulse Resp B/P (MAP) Pulse Ox O2 Delivery O2 Flow Rate FiO2 11/16/19 08:34 100 134/87 11/16/19 06:00 99.0 18 98 Room Air I&O- Last 24 Hours up to 6 AM 11/16/19 05:59 Intake Total 2760 ml Output Total 0 ml Balance 2760 ml JUAN LUIS EPSTEIN MD Nov 16, 2019 09:34
[2019-11-16 10:00] VITALS: BP 130/82
--- NOTE | 2019-11-16 13:50 | PHACANCOPD ---
PHARMACY VANCOMYCIN DOSING Pt Demographics Demographics Patient Age:59 , Weight:89.200 , Gender: male Adjusted Body Weight Date: 11/13/19, Adjusted Body Weight: Kg Events Past 24 Hours Events Past 24 Hours: NO: Dialysis, Diuretic Therapy, Change in CrCl, Fever, Elevation in WBC, Pending Diagnostics, Pending Procedures, Other Vancomycin Vancomycin indication: right leg cellulitis Vancomycin Target Ranges: 10-20 mcg/ml Vancomycin Load Y/N: Yes Load Dose Date Time Vancomycin Load Dose: 1.75g Date:11/13/19 Time:12:30 Vancomycin Dose Date: 11/13/19. Current Vancomycin Dose: [1g iv q12h] Intermittent Dosing?: No Labs Labs Item Value Date Time Creatinine 0.64 MG/DL L 11/15/19 0531 Creatinine 0.72 MG/DL 11/16/19 0522 Vancomycin Level Trough 4.8 UG/ML L 11/14/19 1144 Vancomycin Level Trough 9.5 UG/ML L 11/15/19 1303 Vancomycin Level Trough 11.9 UG/ML 11/16/19 1250 Item Value Date Time White Blood Count 17.0 10^3/uL H 11/14/19 0546 White Blood Count 15.5 10^3/uL H 11/15/19 0531 White Blood Count 13.2 10^3/uL H 11/16/19 0522 Micro Microbiology 11/15/19 Wound Culture, Received Pending 11/14/19 Gram Stain - Final, Complete 11/14/19 Wound Culture - Final, Complete 11/13/19 Blood Culture - Preliminary, Resulted No Growth after 72 hours. All specime... 11/13/19 Blood Culture - Preliminary, Resulted No Growth after 72 hours. All specime... Creatinine Clearance Date:11/13/19. Creatinine Clearance: [65ml/min]. Pending Labs VANCOMYCIN TROUGH 11/17/19 @13 Assessment and Plan Maintaining Current Dose?: No Reason for dose change: Trough too low Pharmacist Note Pharmacist Note Date: 11/16/19. Pharmacist note:Trough came back at 11.9mcg/ml at 12:50. Dosing will be changed to 1g vancomycin IV every 6 hours. We will continue to monitor and adjust the dose as needed. Date: 11/13/19. Pharmacist note: PT is a 59 year old male being treated for right leg cellulitis goal trough 10-20mcg/ml. The patient has not been treated with vancomycin her at [facility] in the past. To achieve goal a 1.75g loading dose was started in the ER today @12:30. Maintenance therapy will consist of 1g IV every 12 hours starting 11/13 @01:00. We will continue to monitor and adjust the dose as needed. LASHELL ENRIQUEZ PHARMACY Nov 16, 2019 13:50
[2019-11-16 14:00] VITALS: BP 134/89
[2019-11-16 22:00] VITALS: BP 144/94
[2019-11-17] MEDS: UNRESOLVED PATIENT OWN MED ORDER XX SCH ×2 (00:01→23:11)
[2019-11-17] MEDS ORDERED: traMADol 50 MG TAB PO ONE (01:30)
[2019-11-17] MEDS: VANCOMYCIN HCL 1,000 MG, VIAL MATE ADAPTER 1 EACH in D5W 250 ML IV SCH ×4 (01:43→20:23)
[2019-11-17] MEDS: KETOROLAC 30 MG/ML 1ML VIAL IV PRN ×4 (03:40→22:02)
[2019-11-17 06:00] VITALS: BP 129/83
[2019-11-17 06:39] LABS: BASO % 0.3 % (0.0-1.0); EOS % 0.2 % (0.0-3.0); HEMATOCRIT 36.4 % (42.0-52.0); HEMOGLOBIN 12.1 g/dl (13.5-17.5); LYMPH # 1.8 10^3/uL (1.5-5.0); LYMPH % 14.8 % (24.0-44.0); MEAN CORPUSCULAR HEMOGLOBIN 27.9 pg (27.0-33.0); MEAN CORPUSCULAR HGB CONC 33.2 g/dl (32.0-36.5); MEAN CORPUSCULAR VOLUME 83.9 fl (80.0-96.0); MONO # 0.9 10^3/uL (0.0-0.8); MONO % 7.5 % (0.0-5.0); NEUTROPHILS # 8.9 10^3/uL (1.5-8.5); NEUTROPHILS % 72.6 % (36.0-66.0); PLATELET COUNT, AUTOMATED 239 10^3/uL (150-450); RED BLOOD COUNT 4.34 10^6/uL (4.30-6.10); WHITE BLOOD COUNT 12.3 10^3/uL (4.0-10.0)
[2019-11-17 07:07] LABS: BLOOD UREA NITROGEN 10 MG/DL (7-18); C REACTIVE PROTEIN QUANTITATIV 6.78 MG/DL (0.00-0.30); CARBON DIOXIDE LEVEL 29 MEQ/L (21-32); CHLORIDE LEVEL 101 MEQ/L (98-107); CREATININE FOR GFR 0.85 MG/DL (0.70-1.30); GLOMERULAR FILTRATION RATE > 60.0 (>56); GLUCOSE, FASTING 209 MG/DL (70-100); POTASSIUM SERUM 4.4 MEQ/L (3.5-5.1); SODIUM LEVEL 137 MEQ/L (136-145)
[2019-11-17 07:23] LABS: ERYTHROCYTE SEDIMENTATION RATE 68 mm/hr (0-20)
[2019-11-17] MEDS: HumaLOG INSULIN (NovoLOG) PER UNIT SC SCH ×4 (07:30→20:24)
[2019-11-17] MEDS: ACETAMINOPHEN TAB 650MG DOSE (2X325MG) PO PRN (07:56)
[2019-11-17] MEDS: ASPIRIN ENTERIC 325 MG TAB PO SCH (08:56)
[2019-11-17] MEDS: NICOTINE 7 MG/24 HR TRANSDERMAL TD SCH (08:57)
[2019-11-17] MEDS: ENOXAPARIN 40MG/0.4ML SYRINGE (J1650 PER 10MG) SC SCH (08:57)
--- NOTE | 2019-11-17 09:42 | IPNPDOC ---
Text Note Date of Service The patient was seen on 11/17/19. NOTE Subjective: Patient seen and examined at bedside. No new medical complaints. Denies any numbness or weakness with his RLE. No fevers. Appetite has improved. Concerned about his ability to ambulate with his cellulitis. Objective: General: NAD, lying comfortably in bed HEENT: NC/AT, EOMI Lungs: CTA B/L Heart: +S1S2, RRR Abd: soft, NT, +BS Ext: bandages in place RLE; cellulitis area appears to have improved. A/P: 59 yo male, currently incarcerated at [facility], presents for one week history worsening RLE cellulitis with purulent discharge. Started on IM Rocephin 11/11/19 with no improvement. Denies trauma, possibility of spider bite. PMHx a-fib, LBBB, DM, asthma, HIV, hep C, medical non-compliance, nicotine abuse, HTN. # Sepsis/RLE cellulitis - continue IV Vancomycin - repeat wound cultures/gram stain pending - ID c/s appreciated - trend ESR/CRP - CRP trending down, leukocytosis trending down, remains afebrile #afib/RVR - patient had not taken his Cardizem and was [facility]compliant at the [facility] - continue CCB - will consider increasing - patient states his cardizem has been titrated up previously - continue ASA 325 he has been receiving for a/c - telemetry monitoring #HIV - as per ID - assistance appreciated - has been responding well to his home meds, which are not available inpatient #Hep C - previously treated #DM - A1C noted - poor glucose control - Continue on sliding scale for now - patient refuses insulin therapy - coun selling provided at bedside #nicotine abuse - Tobacco cessation counseling. Nicotine patch. #History of heroin use. Cessation counseling has been provided. Outpatient rehabilitation #DVT prophylaxis Dispo: pending results of cultures to modify abx; continue vanco for now; id f/u VS,Fishbone, I+O VS, Fishbone, I+O Laboratory Tests 11/17/19 05:37 Vital Signs Date Time Temp Pulse Resp B/P (MAP) Pulse Ox O2 Delivery O2 Flow Rate FiO2 11/17/19 08:57 107 129/83 11/17/19 06:00 99.0 20 97 Room Air I&O- Last 24 Hours up to 6 AM 11/17/19 05:59 Intake Total 3200 ml Output Total 300 ml Balance 2900 ml JUAN LUIS EPSTEIN MD Nov 17, 2019 09:42
[2019-11-17 09:57] LABS: MAGNESIUM LEVEL 1.6 MG/DL (1.8-2.4)
--- NOTE | 2019-11-17 13:47 | PHACANCOPD ---
PHARMACY VANCOMYCIN DOSING Pt Demographics Demographics Patient Age:59 , Weight:89.200 , Gender: male Adjusted Body Weight Date: 11/13/19, Adjusted Body Weight: Kg Vancomycin Vancomycin indication: right leg cellulitis Vancomycin Target Ranges: 10-20 mcg/ml Vancomycin Load Y/N: Yes Load Dose Date Time Vancomycin Load Dose: 1.75g Date:11/13/19 Time:12:30 Vancomycin Dose Date: 11/17/19. Current Vancomycin Dose: [1GIV Q6H] Date: 11/13/19. Current Vancomycin Dose: [1g iv q12h] Intermittent Dosing?: No Labs Labs Item Value Date Time White Blood Count 13.2 10^3/uL H 11/16/19 0522 White Blood Count 12.3 10^3/uL H 11/17/19 0537 Creatinine 0.64 MG/DL L 11/15/19 0531 Creatinine 0.72 MG/DL 11/16/19 0522 Creatinine 0.85 MG/DL 11/17/19 0537 Vancomycin Level Trough 9.5 UG/ML L 11/15/19 1303 Vancomycin Level Trough 11.9 UG/ML 11/16/19 1250 Vancomycin Level Trough 16.6 UG/ML 11/17/19 1306 Micro Microbiology 11/15/19 Wound Culture - Final, Complete 11/14/19 Gram Stain - Final, Complete 11/14/19 Wound Culture - Final, Complete 11/13/19 Blood Culture - Preliminary, Resulted No Growth after 72 hours. All specime... 11/13/19 Blood Culture - Preliminary, Resulted No Growth after 72 hours. All specime... Creatinine Clearance Date:11/17/19. Creatinine Clearance: [87ML/MIN]. Date:11/13/19. Creatinine Clearance: [65ml/min]. Assessment and Plan Maintaining Current Dose?: Yes Reason for dose change: No Dose Change Pharmacist Note Pharmacist Note Date: 11/17/19. Pharmacist note: Trough came back at 16.6mcg/ml. We will continue 1g vancomycin IV every 6 hours. We will continue to monitor and adjust the dose as needed. Date: 11/16/19. Pharmacist note:Trough came back at 11.9mcg/ml at 12:50. Dosing will be changed to 1g vancomycin IV every 6 hours. We will continue to monitor and adjust the dose as needed. Date: 11/13/19. Pharmacist note: PT is a 59 year old male being treated for right leg cellulitis goal trough 10-20mcg/ml. The patient has not been treated with vancomycin her at [facility] in the past. To achieve goal a 1.75g loading dose was started in the ER today @12:30. Maintenance therapy will consist of 1g IV every 12 hours starting 11/13 @01:00. We will continue to monitor and adjust the dose as needed. LASHELL ENRIQUEZ PHARMACY Nov 17, 2019 13:47
[2019-11-17 14:00] VITALS: BP 130/83
[2019-11-17] MEDS: SENOKOT S TAB PO SCH (21:00)
[2019-11-17] MEDS ORDERED: MIRALAX *UNIT DOSE* 17GM PACKET PO PRN (21:15)
[2019-11-17 22:00] VITALS: BP 160/88
[2019-11-18 02:00] VITALS: BP 158/88
[2019-11-18] MEDS: VANCOMYCIN HCL 1,000 MG, VIAL MATE ADAPTER 1 EACH in D5W 250 ML IV SCH ×4 (02:13→20:09)
[2019-11-18] MEDS: KETOROLAC 30 MG/ML 1ML VIAL IV PRN ×2 (04:26→11:19)
[2019-11-18 06:00] VITALS: BP 150/85
[2019-11-18 06:02] LABS: BASO % 0.2 % (0.0-1.0); EOS % 0.1 % (0.0-3.0); HEMATOCRIT 36.8 % (42.0-52.0); LYMPH # 1.8 10^3/uL (1.5-5.0); LYMPH % 13.8 % (24.0-44.0); MEAN CORPUSCULAR HEMOGLOBIN 27.3 pg (27.0-33.0); MEAN CORPUSCULAR HGB CONC 32.6 g/dl (32.0-36.5); MEAN CORPUSCULAR VOLUME 83.8 fl (80.0-96.0); MONO # 0.9 10^3/uL (0.0-0.8); MONO % 7.1 % (0.0-5.0); NEUTROPHILS # 9.8 10^3/uL (1.5-8.5); NEUTROPHILS % 76.9 % (36.0-66.0); PLATELET COUNT, AUTOMATED 233 10^3/uL (150-450); RED BLOOD COUNT 4.39 10^6/uL (4.30-6.10); WHITE BLOOD COUNT 12.7 10^3/uL (4.0-10.0)
[2019-11-18 06:32] LABS: BLOOD UREA NITROGEN 10 MG/DL (7-18); C REACTIVE PROTEIN QUANTITATIV 6.35 MG/DL (0.00-0.30); CALCIUM LEVEL 7.7 MG/DL (8.5-10.1); CARBON DIOXIDE LEVEL 26 MEQ/L (21-32); CHLORIDE LEVEL 100 MEQ/L (98-107); CREATININE FOR GFR 0.79 MG/DL (0.70-1.30); GLOMERULAR FILTRATION RATE > 60.0 (>56); GLUCOSE, FASTING 218 MG/DL (70-100); MAGNESIUM LEVEL 1.5 MG/DL (1.8-2.4); POTASSIUM SERUM 3.4 MEQ/L (3.5-5.1); SODIUM LEVEL 133 MEQ/L (136-145)
[2019-11-18 06:57] LABS: ERYTHROCYTE SEDIMENTATION RATE 80 mm/hr (0-20)
[2019-11-18] MEDS: HumaLOG INSULIN (NovoLOG) PER UNIT SC SCH ×4 (07:30→20:11)
[2019-11-18] MEDS: ENOXAPARIN 40MG/0.4ML SYRINGE (J1650 PER 10MG) SC SCH (07:45)
[2019-11-18] MEDS: NICOTINE 7 MG/24 HR TRANSDERMAL TD SCH (07:45)
[2019-11-18] MEDS: ASPIRIN ENTERIC 325 MG TAB PO SCH (08:52)
[2019-11-18] MEDS: ACETAMINOPHEN TAB 650MG DOSE (2X325MG) PO PRN ×2 (08:54→21:36)
[2019-11-18] MEDS: MAGNESIUM CHLORIDE 64 MG TABCR (SLO MAG) PO SCH (11:18)
[2019-11-18] MEDS: MAG SULF 1GM/100ML (MAG RUN) 1 GM in IV 1 EA IV SCH ×2 (11:18→11:19)
[2019-11-18 14:00] VITALS: BP 141/77
--- NOTE | 2019-11-18 18:13 | IPNPDOC ---
Text Note Date of Service The patient was seen on 11/18/19. NOTE Subjective: Patient seen and examined at bedside. No new medical complaints. Denies any numbness or weakness with his RLE. No fevers. Concerned about his ability to ambulate, and resolution of his cellulitis. Discussed the importance of glucose control and taking his insulin therapy. Objective: General: NAD, lying comfortably in bed HEENT: NC/AT, EOMI Lungs: CTA B/L Heart: +S1S2, RRR Abd: soft, NT, +BS Ext: bandages in place RLE; cellulitis area appears to have improved; RLE warm to touch A/P: 59 yo male, currently incarcerated at [facility], presents for one week history worsening RLE cellulitis with purulent discharge. Started on IM Rocephin 11/11/19 with no improvement. Denies trauma, possibility of spider bite. PMHx a-fib, LBBB, DM, asthma, HIV, hep C, medical non-compliance, nicotine abuse, HTN. # Sepsis/RLE cellulitis - continue IV Vancomycin - repeat wound cultures pending - ID c/s appreciated - ESR slightly increased; CRP trending down, leukocytosis persistent; remains afebrile #afib/RVR - patient had not taken his Cardizem and was noncompliant at the shelter - continue CCB - will consider increasing - patient states his cardizem has been titrated up previously - continue ASA 325 he has been receiving for a/c - telemetry monitoring #HIV - as per ID - assistance appreciated - has been responding well to his home meds, which are not available inpatient #Hep C - previously treated #DM - A1C noted - poor glucose control - Continue on sliding scale for now - patient refuses insulin therapy - counselling provided at bedside #nicotine abuse - Tobacco cessation counseling. Nicotine patch. #History of heroin use. Cessation counseling has been provided. Outpatient rehabilitation #DVT prophylaxis Dispo: pending results of cultures to modify abx; continue vanco for now; id f/u VS,Fishbone, I+O VS, Fishbone, I+O Laboratory Tests 11/18/19 05:27 Vital Signs Date Time Temp Pulse Resp B/P (MAP) Pulse Ox O2 Delivery O2 Flow Rate FiO2 11/18/19 14:00 96.8 100 18 141/77 (98) 98 Room Air I&O- Last 24 Hours up to 6 AM 11/18/19 05:59 Intake Total 2320 ml Output Total 0 ml Balance 2320 ml JUAN LUIS EPSTEIN MD Nov 18, 2019 18:13
[2019-11-18] MEDS ORDERED: KETOROLAC 30 MG/ML 1ML VIAL IV PRN (19:45)
[2019-11-18] MEDS: SENOKOT S TAB PO SCH (20:09)
[2019-11-18] MEDS: traMADol 50 MG TAB PO PRN (20:10)
[2019-11-18 22:00] VITALS: BP 164/90
[2019-11-19] MEDS: UNRESOLVED PATIENT OWN MED ORDER XX SCH (00:01)
[2019-11-19] MEDS: VANCOMYCIN HCL 1,000 MG, VIAL MATE ADAPTER 1 EACH in D5W 250 ML IV SCH ×3 (02:54→14:30)
[2019-11-19] MEDS: ACETAMINOPHEN TAB 650MG DOSE (2X325MG) PO PRN ×2 (03:08→12:49)
[2019-11-19 06:00] VITALS: BP 150/88
[2019-11-19 06:12] LABS: BASO % 0.2 % (0.0-1.0); EOS % 0.1 % (0.0-3.0); HEMATOCRIT 37.1 % (42.0-52.0); HEMOGLOBIN 12.3 g/dl (13.5-17.5); LYMPH # 1.9 10^3/uL (1.5-5.0); LYMPH % 14.7 % (24.0-44.0); MEAN CORPUSCULAR HEMOGLOBIN 27.8 pg (27.0-33.0); MEAN CORPUSCULAR HGB CONC 33.2 g/dl (32.0-36.5); MEAN CORPUSCULAR VOLUME 83.7 fl (80.0-96.0); MONO % 7.4 % (0.0-5.0); NEUTROPHILS # 9.9 10^3/uL (1.5-8.5); NEUTROPHILS % 76.2 % (36.0-66.0); PLATELET COUNT, AUTOMATED 265 10^3/uL (150-450); RED BLOOD COUNT 4.43 10^6/uL (4.30-6.10)
[2019-11-19 06:30] LABS: BLOOD UREA NITROGEN 10 MG/DL (7-18); CALCIUM LEVEL 7.6 MG/DL (8.5-10.1); CARBON DIOXIDE LEVEL 26 MEQ/L (21-32); CHLORIDE LEVEL 105 MEQ/L (98-107); CREATININE FOR GFR 0.71 MG/DL (0.70-1.30); GLOMERULAR FILTRATION RATE > 60.0 (>56); GLUCOSE, FASTING 213 MG/DL (70-100); POTASSIUM SERUM 3.5 MEQ/L (3.5-5.1); SODIUM LEVEL 137 MEQ/L (136-145)
[2019-11-19] MEDS: ASPIRIN ENTERIC 325 MG TAB PO SCH (08:26)
[2019-11-19] MEDS: NICOTINE 7 MG/24 HR TRANSDERMAL TD SCH ×2 (08:26→08:37)
[2019-11-19] MEDS: ENOXAPARIN 40MG/0.4ML SYRINGE (J1650 PER 10MG) SC SCH (08:26)
[2019-11-19] MEDS: MAGNESIUM CHLORIDE 64 MG TABCR (SLO MAG) PO SCH (08:26)
[2019-11-19] MEDS: HumaLOG INSULIN (NovoLOG) PER UNIT SC SCH ×4 (08:27→20:25)
[2019-11-19] MEDS: traMADol 50 MG TAB PO PRN ×2 (09:24→23:51)
--- NOTE | 2019-11-19 11:06 | IPN ---
DATE OF SERVICE: 11/18/2019 Giles is doing well. He still complains of pain when he steps on his foot. He has no nausea, vomiting, or diarrhea. No abdominal pain. He has not had a fever since 11/15/2019. He has no other complaints. He has not been given his HIV medications since admission. On physical examination, temperature is 96.8, pulse 100, respiration 18, blood pressure 141/77, oxygen (O2) saturation 98% on room air. Heart: Normal S1, S2, irregular. No murmurs. Lungs are clear. No wheezes, rales, or rhonchi. Abdomen is soft, nontender. No hepatosplenomegaly. Extremities: No edema. The right leg erythema is markedly better. There is minimal serous drainage on the OptiLock from the calf area. There is still erythema from below the knee to the ankle. He has normal range of motion of the ankle and the knee joint. There is no fluctuance. LABORATORY DATA: White count is 12.7 down from 24.8, hemoglobin 12, hematocrit 36.8, platelets 233. Sodium 133, potassium 3.4, chloride 100, bicarbonate 26, BUN 10, creatinine 0.79, glucose 318, calcium 7.7, magnesium 1.5, CRP 6.35. Vancomycin trough was 17.7. Methicillin-resistant Staphylococcus aureus (MRSA) screen was not detected. Wound culture was negative from the right leg twice on 11/14/2019 and 11/15/2019. Blood cultures were negative. IMPRESSION: 1. Right lower extremity cellulitis. Failed to improve with intramuscular (IM) Rocephin in the longterm. The patient is doing much better on intravenous (IV) vancomycin. His white count and C-reactive protein (CRP) are markedly improving. He is still complaining of pain when stepping on his foot. I would suggest switching him tomorrow if his laboratories continue to do better to Augmentin 875 mg twice a day, along with Bactrim DS one tablet by mouth twice a day to cover for Streptococcus and Staphylococcus, along with MRSA. 2. HIV with CD-4 count over 1000. The patient has not received his Genvoya since he has been hospitalized. I called the [facility] and asked them to send his medications as soon as possible. This has been on hold since 11/14/2019, 5 days. 3. Diabetes. The patient has finally agreed to take some insulin. His glucoses have been ranging between 194-285. PLAN: Continue IV vancomycin until tomorrow. Switch to Augmentin 875 mg twice a day and Bactrim DS one tablet by mouth twice a day for 1 more week.
[2019-11-19] MEDS: GENVOYA PO SCH (12:48)
[2019-11-19 14:00] VITALS: BP 120/98
[2019-11-19 15:53] LABS: C REACTIVE PROTEIN QUANTITATIV 5.87 MG/DL (0.00-0.30)
[2019-11-19] MEDS: oxyCODONE 5MG TAB PO PRN ×2 (16:10→22:15)
--- NOTE | 2019-11-19 18:03 | IPNPDOC ---
Date Seen The patient was seen on 11/19/19. Progress Note SUBJECTIVE: Patient reports pain in his RLE. Denies any other complaints apart from pain. Febrile overnight, Tmax 100.9 last night with HR 110s. WBC 13 this morning. OBJECTIVE PHYSICAL EXAMINATION: VITAL SIGNS: Please see below. General: Mild distress, Alert Eyes: Normal sclera, EOMI HENT: Atraumatic Cardiovascular: tachycardic, normal rhythm. Pulmonary: Clear to auscultation b/l, no wheezing GI: Soft, nontender, nondistended Skin: RLE erythema overlying chronic venous stasis darkening skin changes up to knee. No drainage noted. Neuro: CN grossly intact. No focal deficits. Strengths equal b/l. Psych: oriented x 3 LABORATORY DATA, IMAGING STUDIES, MICROBIOLOGY: Please see below. DVT prophylaxis ordered?: ASSESSMENT AND PLAN: 1. Sepsis 2/2 RLE cellulitis - Reportedly improving on admission but still has significant pain. - failed IM rocephin in [facility] and was on IV vancomycin, now changed to bactrim and Augmentin. - ID following. To get Augmentin BID and Bactrim DS BID for 1 week starting on 11/18. - blood and wound cultures are all negative. 2. HIV - c/w home med Genvoya. Had been restarted. 3. DM - ISS. Agreeable to taking insulin therapy now. 4. Afib w/ RVR - Was on cardizem 120mg BID CD. Has not been taking it and noncompliant at the [facility]. - HR uncontrolled. Will change to higher dose immediate release until HR consistently controlled, can switch back once stable. - ASA - Monitor on Tele. 5. Hep C - previously treated. 6. hx heroin use Dispo: back to [facility] facility post [facility] DISPOSITION: . VS, I&O, 24H, Fishbone Vital Signs/I&O Vital Signs Date Time Temp Pulse Resp B/P (MAP) Pulse Ox O2 Delivery O2 Flow Rate FiO2 11/19/19 16:40 18 11/19/19 14:00 97.7 117 120/98 (105) 99 Room Air I&O- Last 24 Hours up to 6 AM 11/19/19 06:00 Intake Total 1980 ml Balance 1980 ml Laboratory Data 24H LABS Laboratory Tests 2 11/18/19 20:08: Bedside Glucose (Misc Panel) 228H 11/19/19 05:59: Immature Granulocyte % (Auto) 1.4, Neutrophils (%) (Auto) 76.2H, Lymphocytes (%) (Auto) 14.7L, Monocytes (%) (Auto) 7.4H, Eosinophils (%) (Auto) 0.1, Basophils (%) (Auto) 0.2, Neutrophils # (Auto) 9.9H, Lymphocytes # (Auto) 1.9, Monocytes # (Auto) 1.0H, Eosinophils # (Auto) 0.0, Basophils # (Auto) 0.0, Nucleated Red Blood Cells % (auto) 0.0, Anion Gap 6L, Glomerular Filtration Rate > 60.0, Calcium Level 7.6L, C-Reactive Protein, Quantitative 5.87H 11/19/19 11:25: Bedside Glucose (Misc Panel) 195H CBC/BMP Laboratory Tests 11/19/19 05:59 Microbiology Microbiology 11/15/19 Wound Culture - Final, Complete 11/14/19 Gram Stain - Final, Complete 11/14/19 Wound Culture - Final, Complete 11/13/19 Blood Culture - Final, Complete NO GROWTH AFTER 5 DAYS 11/13/19 Blood Culture - Final, Complete NO GROWTH AFTER 5 DAYS TRE XIAO MD Nov 19, 2019 18:03
[2019-11-19] MEDS: SENOKOT S TAB PO SCH (20:24)
[2019-11-19] MEDS: AUGMENTIN 875 MG TAB PO SCH (20:24)
[2019-11-19] MEDS: BACTRIM 160MG/800MG DS TAB PO SCH (20:24)
[2019-11-19 22:00] VITALS: BP 138/95
[2019-11-19] MEDS: RAMELTEON 8 MG TAB (ROZEREM) PO PRN (23:51)
[2019-11-20 06:00] VITALS: BP 135/87
[2019-11-20 06:32] LABS: BASO % 0.3 % (0.0-1.0); EOS % 0.1 % (0.0-3.0); HEMATOCRIT 34.6 % (42.0-52.0); HEMOGLOBIN 11.2 g/dl (13.5-17.5); LYMPH # 1.8 10^3/uL (1.5-5.0); LYMPH % 15.8 % (24.0-44.0); MEAN CORPUSCULAR HEMOGLOBIN 27.3 pg (27.0-33.0); MEAN CORPUSCULAR HGB CONC 32.4 g/dl (32.0-36.5); MEAN CORPUSCULAR VOLUME 84.2 fl (80.0-96.0); MONO # 0.9 10^3/uL (0.0-0.8); MONO % 7.9 % (0.0-5.0); NEUTROPHILS # 8.7 10^3/uL (1.5-8.5); NEUTROPHILS % 74.7 % (36.0-66.0); PLATELET COUNT, AUTOMATED 286 10^3/uL (150-450); RED BLOOD COUNT 4.11 10^6/uL (4.30-6.10); WHITE BLOOD COUNT 11.6 10^3/uL (4.0-10.0)
[2019-11-20 06:53] LABS: BLOOD UREA NITROGEN 13 MG/DL (7-18); CARBON DIOXIDE LEVEL 26 MEQ/L (21-32); CHLORIDE LEVEL 102 MEQ/L (98-107); CREATININE FOR GFR 0.82 MG/DL (0.70-1.30); GLOMERULAR FILTRATION RATE > 60.0 (>56); GLUCOSE, FASTING 180 MG/DL (70-100); SODIUM LEVEL 136 MEQ/L (136-145)
[2019-11-20] MEDS: oxyCODONE 5MG TAB PO PRN (07:44)
[2019-11-20] MEDS: HumaLOG INSULIN (NovoLOG) PER UNIT SC SCH ×4 (07:45→21:00)
[2019-11-20] MEDS: NICOTINE 7 MG/24 HR TRANSDERMAL TD SCH (07:50)
[2019-11-20] MEDS: GENVOYA PO SCH (08:49)
[2019-11-20] MEDS: MAGNESIUM CHLORIDE 64 MG TABCR (SLO MAG) PO SCH (08:49)
[2019-11-20] MEDS: ENOXAPARIN 40MG/0.4ML SYRINGE (J1650 PER 10MG) SC SCH (08:50)
[2019-11-20] MEDS: AUGMENTIN 875 MG TAB PO SCH ×2 (08:51→21:16)
[2019-11-20] MEDS: ASPIRIN ENTERIC 325 MG TAB PO SCH (08:51)
[2019-11-20] MEDS: BACTRIM 160MG/800MG DS TAB PO SCH ×2 (08:51→21:16)
[2019-11-20] MEDS ORDERED: ONDANSETRON 4MG/2ML VIAL IV PRN (10:15)
[2019-11-20] MEDS: MORPHINE 2 MG/ML 1ML VIAL (J2270) IV PRN ×3 (10:44→22:49)
--- NOTE | 2019-11-20 12:09 | IPNPDOC ---
Date Seen The patient was seen on 11/20/19. Progress Note SUBJECTIVE: Patient continues to complaint of RLE pain despite addition of oxycodone. Morphine IV for breakthrough pain added this morning. Patient remained afebrile overnight. WBC 13 ->11. HR 100s, cardizem titrated up to TID dosing. OBJECTIVE PHYSICAL EXAMINATION: VITAL SIGNS: Please see below. General: Mild distress, Alert Eyes: Normal sclera, EOMI HENT: Atraumatic Cardiovascular: tachycardic Pulmonary: Clear to auscultation b/l, no wheezing GI: Soft, nontender, nondistended Skin: RLE erythema overlying chronic venous stasis darkening skin changes up to knee. No drainage noted. Neuro: CN grossly intact. No focal deficits. Strengths equal b/l. Psych: oriented x 3 LABORATORY DATA, IMAGING STUDIES, MICROBIOLOGY: Please see below. DVT prophylaxis ordered?: ASSESSMENT AND PLAN: 1. Sepsis 2/2 RLE cellulitis - Reportedly improving on admission but still has significant pain. - failed [facility]phin in [facility] and was on IV vancomycin, now changed to bactrim and Augmentin. - ID following. To get Augmentin BID and Bactrim DS BID for 1 week starting on 11/18. - blood and wound cultures are all negative. 2. HIV - c/w home med Genvoya. Had been restarted. 3. DM - ISS. Agreeable to taking insulin therapy now. 4. Afib w/ RVR - Was on cardizem 120mg BID CD. Has not been taking it and noncompliant at the [facility]. - HR uncontrolled. Changed to higher dose immediate release until HR consistently controlled, can switch back once stable. - ASA - Monitor on Tele. 5. Hep C - previously treated. 6. hx heroin use Dispo: back to correction facility post discharge VS, I&O, 24H, Fishbone Vital Signs/I&O Vital Signs Date Time Temp Pulse Resp B/P (MAP) Pulse Ox O2 Delivery O2 Flow Rate FiO2 11/20/19 10:44 18 Room Air 11/20/19 08:51 115 135/85 11/20/19 06:00 98.9 97 I&O- Last 24 Hours up to 6 AM 11/20/19 06:00 Intake Total 1500 ml Output Total 0 ml Balance 1500 ml Laboratory Data 24H LABS Laboratory Tests 2 11/19/19 16:53: Bedside Glucose (Misc Panel) 176H 11/19/19 20:18: Bedside Glucose (Misc Panel) 219H 11/20/19 05:34: Immature Granulocyte % (Auto) 1.2, Neutrophils (%) (Auto) 74.7H, Lymphocytes (%) (Auto) 15.8L, Monocytes (%) (Auto) 7.9H, Eosinophils (%) (Auto) 0.1, Basophils (%) (Auto) 0.3, Neutrophils # (Auto) 8.7H, Lymphocytes # (Auto) 1.8, Monocytes # (Auto) 0.9H, Eosinophils # (Auto) 0.0, Basophils # (Auto) 0.0, Nucleated Red Blood Cells % (auto) 0.0, Anion Gap 8, Glomerular Filtration Rate > 60.0, Calcium Level 8.0L 11/20/19 11:17: Bedside Glucose (Misc Panel) 160H CBC/BMP Laboratory Tests 11/20/19 05:34 Microbiology Microbiology 11/15/19 Wound Culture - Final, Complete 11/14/19 Gram Stain - Final, Complete 11/14/19 Wound Culture - Final, Complete 11/13/19 Blood Culture - Final, Complete NO GROWTH AFTER 5 DAYS 11/13/19 Blood Culture - Final, Complete NO GROWTH AFTER 5 DAYS TRE XIAO MD Nov 20, 2019 12:09
[2019-11-20 14:00] VITALS: BP 105/66
[2019-11-20] MEDS: SENOKOT S TAB PO SCH (21:16)
[2019-11-20 22:00] VITALS: BP 107/61
[2019-11-21] MEDS: traMADol 50 MG TAB PO PRN (00:23)
[2019-11-21] MEDS: MORPHINE 2 MG/ML 1ML VIAL (J2270) IV PRN ×4 (05:16→21:32)
[2019-11-21 06:00] VITALS: BP 132/78
[2019-11-21 06:05] LABS: HEMATOCRIT 35.8 % (42.0-52.0); HEMOGLOBIN 11.5 g/dl (13.5-17.5); MEAN CORPUSCULAR HEMOGLOBIN 27.4 pg (27.0-33.0); MEAN CORPUSCULAR HGB CONC 32.1 g/dl (32.0-36.5); MEAN CORPUSCULAR VOLUME 85.4 fl (80.0-96.0); PLATELET COUNT, AUTOMATED 338 10^3/uL (150-450); RED BLOOD COUNT 4.19 10^6/uL (4.30-6.10)
[2019-11-21 06:30] LABS: BLOOD UREA NITROGEN 14 MG/DL (7-18); CALCIUM LEVEL 8.1 MG/DL (8.5-10.1); CARBON DIOXIDE LEVEL 24 MEQ/L (21-32); CHLORIDE LEVEL 105 MEQ/L (98-107); CREATININE FOR GFR 0.95 MG/DL (0.70-1.30); GLOMERULAR FILTRATION RATE > 60.0 (>56); GLUCOSE, FASTING 163 MG/DL (70-100); POTASSIUM SERUM 4.2 MEQ/L (3.5-5.1); SODIUM LEVEL 138 MEQ/L (136-145)
[2019-11-21] MEDS: HumaLOG INSULIN (NovoLOG) PER UNIT SC SCH ×4 (07:38→20:53)
[2019-11-21] MEDS: oxyCODONE 5MG TAB PO PRN (07:39)
[2019-11-21 08:22] VITALS: BP 132/76
[2019-11-21] MEDS: NICOTINE 7 MG/24 HR TRANSDERMAL TD SCH (08:49)
[2019-11-21] MEDS: MAGNESIUM CHLORIDE 64 MG TABCR (SLO MAG) PO SCH (10:22)
[2019-11-21] MEDS: GENVOYA PO SCH (10:22)
[2019-11-21] MEDS: ENOXAPARIN 40MG/0.4ML SYRINGE (J1650 PER 10MG) SC SCH (10:22)
[2019-11-21] MEDS: ASPIRIN ENTERIC 325 MG TAB PO SCH (10:23)
[2019-11-21] MEDS: AUGMENTIN 875 MG TAB PO SCH ×2 (10:23→21:32)
[2019-11-21] MEDS: BACTRIM 160MG/800MG DS TAB PO SCH ×2 (10:24→21:32)
[2019-11-21 12:00] VITALS: BP 116/75
[2019-11-21 14:00] VITALS: BP_SYST 110; BP_SYST 130; BP_DIAS 72; BP_DIAS 83
--- NOTE | 2019-11-21 17:03 | IPNPDOC ---
Date Seen The patient was seen on 11/21/19. Progress Note SUBJECTIVE: Patient appear more comfortable today. Still complains of having persistent pain in RLE between medication doses. Dressing removed this morning and wound appears unchanged, erythema had not progressed past lon lines around the knees. Afebrile overnight. WBC 11. HR now 60-80s OBJECTIVE PHYSICAL EXAMINATION: VITAL SIGNS: Please see below. General: Mild distress, Alert Eyes: Normal sclera, EOMI HENT: Atraumatic Cardiovascular: normal rate Pulmonary: Clear to auscultation b/l, no wheezing GI: Soft, nontender, nondistended Skin: RLE erythema overlying chronic venous stasis darkening skin changes up to knee. No drainage noted. Neuro: CN grossly intact. No focal deficits. Strengths equal b/l. Psych: oriented x 3 LABORATORY DATA, IMAGING STUDIES, MICROBIOLOGY: Please see below. DVT prophylaxis ordered?: ASSESSMENT AND PLAN: 1. Sepsis 2/2 RLE cellulitis - Reportedly improving from admission but still has significant pain. Fever had resolved. - [facility] and was on IV vancomycin, now changed to bactrim and Augmentin. - ID following. To get Augmentin BID and Bactrim DS BID for 1 week starting on 11/18. - blood and wound cultures are all negative. 2. HIV - c/w home med Genvoya. Had been restarted. 3. DM - ISS. Agreeable to taking insulin therapy now. 4. Afib w/ RVR - Was on cardizem 120mg BID CD. Has not been taking it and [facility]. - HR uncontrolled. Changed to higher dose immediate release until HR consist ently controlled, can switch back once stable. - ASA - Monitor on Tele. 5. Hep C - previously treated. 6. hx heroin use Dispo: back to [facility] facility post discharge VS, I&O, 24H, Fishbone Vital Signs/I&O Vital Signs Date Time Temp Pulse Resp B/P (MAP) Pulse Ox O2 Delivery O2 Flow Rate FiO2 11/21/19 14:00 97.9 84 18 130/83 96 11/21/19 14:00 Room Air I&O- Last 24 Hours up to 6 AM 11/21/19 05:59 Intake Total 1520 ml Output Total 0 ml Balance 1520 ml Laboratory Data 24H LABS Laboratory Tests 2 11/20/19 21:02: Bedside Glucose (Misc Panel) 115H 11/21/19 05:23: Nucleated Red Blood Cells % (auto) 0.0, Anion Gap 9, Glomerular Filtration Rate > 60.0, Calcium Level 8.1L 11/21/19 11:36: Bedside Glucose (Misc Panel) 171H 11/21/19 16:34: Bedside Glucose (Misc Panel) 132H CBC/BMP Laboratory Tests 11/21/19 05:23 Microbiology Microbiology 11/15/19 Wound Culture - Final, Complete 11/14/19 Gram Stain - Final, Complete 11/14/19 Wound Culture - Final, Complete 11/13/19 Blood Culture - Final, Complete NO GROWTH AFTER 5 DAYS 11/13/19 Blood Culture - Final, Complete NO GROWTH AFTER 5 DAYS TRE XIAO MD Nov 21, 2019 17:03
[2019-11-21 18:49] LABS: C REACTIVE PROTEIN QUANTITATIV 3.83 MG/DL (0.00-0.30)
[2019-11-21] MEDS: SENOKOT S TAB PO SCH (21:32)
[2019-11-21 22:00] VITALS: BP 115/65
[2019-11-22] MEDS: traMADol 50 MG TAB PO PRN ×2 (00:11→12:47)
[2019-11-22] MEDS: MORPHINE 2 MG/ML 1ML VIAL (J2270) IV PRN ×3 (03:38→22:49)
[2019-11-22 05:53] LABS: HEMATOCRIT 34.9 % (42.0-52.0); HEMOGLOBIN 11.2 g/dl (13.5-17.5); MEAN CORPUSCULAR HEMOGLOBIN 27.5 pg (27.0-33.0); MEAN CORPUSCULAR HGB CONC 32.1 g/dl (32.0-36.5); MEAN CORPUSCULAR VOLUME 85.7 fl (80.0-96.0); PLATELET COUNT, AUTOMATED 348 10^3/uL (150-450); RED BLOOD COUNT 4.07 10^6/uL (4.30-6.10); WHITE BLOOD COUNT 10.3 10^3/uL (4.0-10.0)
[2019-11-22 06:00] VITALS: BP 134/84
[2019-11-22 06:11] LABS: BLOOD UREA NITROGEN 14 MG/DL (7-18); CALCIUM LEVEL 8.3 MG/DL (8.5-10.1); CARBON DIOXIDE LEVEL 26 MEQ/L (21-32); CHLORIDE LEVEL 103 MEQ/L (98-107); GLOMERULAR FILTRATION RATE > 60.0 (>56); GLUCOSE, FASTING 155 MG/DL (70-100); POTASSIUM SERUM 4.4 MEQ/L (3.5-5.1); SODIUM LEVEL 138 MEQ/L (136-145)
[2019-11-22] MEDS: HumaLOG INSULIN (NovoLOG) PER UNIT SC SCH ×4 (08:39→21:00)
[2019-11-22] MEDS: ASPIRIN ENTERIC 325 MG TAB PO SCH (08:40)
[2019-11-22] MEDS: MAGNESIUM CHLORIDE 64 MG TABCR (SLO MAG) PO SCH (08:40)
[2019-11-22] MEDS: AUGMENTIN 875 MG TAB PO SCH (08:40)
[2019-11-22] MEDS: BACTRIM 160MG/800MG DS TAB PO SCH (08:40)
[2019-11-22] MEDS: NICOTINE 7 MG/24 HR TRANSDERMAL TD SCH (08:41)
[2019-11-22] MEDS: ENOXAPARIN 40MG/0.4ML SYRINGE (J1650 PER 10MG) SC SCH (08:41)
[2019-11-22] MEDS: GENVOYA PO SCH (08:41)
[2019-11-22] MEDS: oxyCODONE 5MG TAB PO PRN ×2 (08:51→21:58)
[2019-11-22 14:00] VITALS: BP 140/78
[2019-11-22 14:51] LABS: C REACTIVE PROTEIN QUANTITATIV 4.59 MG/DL (0.00-0.30)
--- NOTE | 2019-11-22 16:25 | REP ---
RIGHT LOWER LEG, AP AND LATERAL: There is no evidence of an acute fracture, dislocation, or intrinsic bone disease. IMPRESSION: No fracture or dislocation. Electronically Signed by Wiliam Gonzales MD 11/25/2019 09:45 A
--- NOTE | 2019-11-22 16:29 | REP ---
RIGHT FOOT, AP AND LATERAL: Two AP and lateral views of the right foot performed. No acute fracture or dislocation is seen. No osseous destruction or periosteal reaction is seen. There is mild to moderate posterior and inferior calcaneal spurring. Mild dorsum navicular spurring. There is mild narrowing and sclerosis at the talonavicular joint. There is mild narrowing at the 1st metatarsophalangeal joint. There is moderate spurring of the head of the 1st metatarsal with a particularly large spur laterally of the head of the 1st metatarsal. There is mild spurring at the base of the 1st proximal phalanx. IMPRESSION: Degenerative changes with no fracture or dislocation. Electronically Signed by Wiliam Gonzales MD 11/25/2019 09:48 A
[2019-11-22] MEDS: VANCOMYCIN HCL 1,000 MG, VIAL MATE ADAPTER 1 EACH in D5W 250 ML IV SCH ×2 (17:57→22:47)
--- NOTE | 2019-11-22 19:33 | IPNPDOC ---
Date Seen The patient was seen on 11/22/19. Progress Note SUBJECTIVE: Patient still complains of RLE pain and unable to walk on it. PT was ordered for eval and treat. Afebrile overnight. WBC 10.3. R. foot XR shows degenerative change with no fracture or dislocation. OBJECTIVE PHYSICAL EXAMINATION: VITAL SIGNS: Please see below. General: Mild distress, Alert Eyes: Normal sclera, EOMI HENT: Atraumatic Cardiovascular: normal rate Pulmonary: Clear to auscultation b/l, no wheezing GI: Soft, nontender, nondistended Skin: RLE erythema overlying chronic venous stasis darkening skin changes up to knee. No drainage noted. Neuro: CN grossly intact. No focal deficits. Strengths equal b/l. Psych: oriented x 3 LABORATORY DATA, IMAGING STUDIES, MICROBIOLOGY: Please see below. DVT prophylaxis ordered?: ASSESSMENT AND PLAN: 1. Sepsis 2/2 RLE cellulitis - Reportedly improving from admission but still has significant pain. Fever had resolved. - failed IM rocephin in [facility] and was on IV vancomycin, now changed to bactrim and Augmentin. - ID following. To get Augmentin BID and Bactrim DS BID for 1 week starting on 11/18. - blood and wound cultures are all negative. - Severe R. foot/leg pain. XR does not show any fracture or dislocations. MRI of R. ankle is ordered to further evaluate. 2. HIV - c/w home med Genvoya. Had been restarted. 3. DM - ISS. 4. Afib w/ RVR - Was on cardizem 120mg BID CD. Has not been taking it and noncompliant at the [facility]. - HR uncontrolled. Changed to higher dose immediate release until HR consi stently controlled, can switch back once stable. - ASA - Monitor on Tele. 5. Hep C - previously treated. 6. hx heroin use Dispo: back to [facility] facility post discharge VS, I&O, 24H, Fishbone Vital Signs/I&O Vital Signs Date Time Temp Pulse Resp B/P (MAP) Pulse Ox O2 Delivery O2 Flow Rate FiO2 11/22/19 16:50 16 11/22/19 16:42 90 127/74 11/22/19 14:00 97.2 98 Room Air I&O- Last 24 Hours up to 6 AM 11/22/19 06:00 Intake Total 2080 ml Balance 2080 ml Laboratory Data 24H LABS Laboratory Tests 2 11/21/19 20:45: Bedside Glucose (Misc Panel) 169H 11/22/19 05:06: Nucleated Red Blood Cells % (auto) 0.0, Anion Gap 9, Glomerular Filtration Rate > 60.0, Calcium Level 8.3L, C-Reactive Protein, Quantitative 4.59H 11/22/19 11:35: Bedside Glucose (Misc Panel) 124H 11/22/19 16:35: Bedside Glucose (Misc Panel) 149H CBC/BMP Laboratory Tests 11/22/19 05:06 Microbiology Microbiology 11/15/19 Wound Culture - Final, Complete 11/14/19 Gram Stain - Final, Complete 11/14/19 Wound Culture - Final, Complete 11/13/19 Blood Culture - Final, Complete NO GROWTH AFTER 5 DAYS 11/13/19 Blood Culture - Final, Complete NO GROWTH AFTER 5 DAYS TRE XIAO MD Nov 22, 2019 19:33
[2019-11-22] MEDS ORDERED: PROHANCE 279.3MG/ML 5ML VIAL As Ordered ONE (21:05)
[2019-11-22] MEDS ORDERED: PROHANCE 279.3MG/ML 15ML VIAL As Ordered ONE (21:06)
[2019-11-22] MEDS: SENOKOT S TAB PO SCH (21:54)
[2019-11-22 22:00] VITALS: BP 121/71
--- NOTE | 2019-11-22 23:29 | REPVR ---
PROCEDURE INFORMATION: Exam: MR Right Lower Extremity Joint Without and With Contrast; Ankle Exam date and time: 11/22/2019 9:25 PM Age: 59 years old Clinical indication: Cellulitis; Ankle and foot and lower leg; Right; Patient HX: Swelling, redness, and pain in lower limb; Additional info: Pain, cellulitis, can't walk TECHNIQUE: Imaging protocol: MR of the Right lower extremity without and with contrast. Exam focused on the ankle. Contrast material: PROHANCE; Contrast volume: 16 ml; Contrast route: INTRAVENOUS (IV); COMPARISON: CR Right Foot, Ap, Lat 11/22/2019 2:56 PM FINDINGS: Limitations: Motion artifact degrades the image quality of of the coronal T1 with fat saturation postcontrast series. Bones and cartilage: There is no fracture, dislocation, or osteochondral lesion. There are no bony destructive changes, cortical erosions, abnormal bony enhancement, or periostitis to suggest osteomyelitis. There is dorsal spurring from the talonavicular joint. There is mild degenerative subchondral edema in the anterior portion of the calcaneus. No tarsal coalition is present. Joint spaces: No joint effusion. LIGAMENTS: Distal tibiofibular syndesmosis: Intact. Anterior talofibular ligament: Intact. Posterior talofibular ligament: Intact. Calcaneofibular ligament: Intact. Deltoid ligament complex: Intact. Spring ligament complex: Intact. Lisfranc ligament: Intact. TENDONS: Flexor tendons of foot: Intact as visualized. No tendinosis. There is a large amount of fluid in the flexor hallucis longus tendon sheath. Tibialis posterior tendon: Intact. There is severe tendinosis involving the distal fibers of the tibialis posterior tendon. No tenosynovitis. Peroneal tendons: There is a focal split tear involving the right peroneus brevis tendon just below the level of the lateral malleolus (images 22-23 of the axial T2 with fat saturation series 501 and images 26-28 of the coronal T2 with fat saturation series 701). The peroneus longus tendon is intact. Extensor tendons of foot: Intact as visualized. No tendinosis. No tenosynovitis. Tibialis anterior tendon: Intact. No tendinosis. No tenosynovitis. Achilles tendon: There is a posterior calcaneal spur at the insertion of the Achilles tendon, which is compatible with an Achilles enthesopathy. There is edema in the pre Achilles fat, which is compatible with an Achilles peritendinitis. The Achilles tendon is intact. Tarsal canal (Sinus tarsi): The roots of the inferior extensor retinaculum, cervical ligament, and interosseous talocalcaneal ligament are intact. There is no replacement of the normal fatty signal in the sinus tarsi to suggest a sinus tarsi syndrome. Tarsal tunnel: Normal. Muscles: There is mildly increased T2 signal in the right extensor digitorum longus, quadratus plantae, and abductor digiti minimi muscles. Soft tissues: There is edema and enhancement in the subcutaneous tissues predominantly along the anterior aspect of the right distal calf and along the medial and lateral aspect of the right hindfoot. No drainable soft tissue fluid collection is noted. Plantar fascia: There is a plantar calcaneal spur at the origin of the plantar fascia. The plantar fascia is intact without evidence for plantar fasciitis or plantar fibromatosis. IMPRESSION: 1. Focal split tear involving the right peroneus brevis tendon just below the level of the lateral malleolus. 2. Mildly increased T2 signal in the right extensor digitorum longus, quadratus plantae, and abductor digiti minimi muscles, which may represent a grade 1 strain of these muscles or myositis. 3. Right Achilles enthesopathy and peritendinitis. 4. Severe tendinosis involving the distal portion of the right tibialis posterior tendon. 5. Right flexor hallucis longus tenosynovitis. 6. Edema and enhancement in the subcutaneous tissues predominantly along the anterior aspect of the right distal calf and along the medial lateral aspect of the right hindfoot, which may represent cellulitis, lymphedema, or bruising. Electronically signed by: Duane Waldron On 11/22/2019 23:29:16 PM
--- NOTE | 2019-11-22 23:39 | IPN ---
DATE: 11/22/2019 Giles states that his leg is better, but his ankle is very painful. He is not able to walk on it. He has been taking Percocet and morphine without any help. The swelling of the leg has markedly improved. There are no lesions. No drainage. LABS: White count 10.3, hemoglobin 11.2, hematocrit 34.9, platelets 348. Vlifat626, potassium 4.4, chloride 103, bicarbonate 26, BUN 14, creatinine 1, glucose 155, calcium 8.3, CRP 4.59 increased from 3.83. Blood cultures negative. Wound cultures times two negative. On physical exam, temperature is 97.2, pulse 88, respirations 18, blood pressure 140/78, oxygen saturation (O2 sat) 98% on room air. Heart: Normal S1, S2. No murmurs. Lungs are clear. No wheezes, rales or rhonchi. Abdomen: Soft, nontender. No hepatosplenomegaly. Back: No costovertebral angle (CVA) tenderness. Right lower extremity: Redness has markedly diminished. There is hyperpigmented venous changes. The swelling has decreased. There is no purulence, drainage. The ankle has limited range of motion with tenderness around the ankle joint and above the ankle joint. IMPRESSION: Right lower extremity cellulitis, markedly better after receiving IV vancomycin from 11/13/2019 to 11/19/2019. He was then switched to Augmentin and Bactrim with persistent right ankle pain. X-rays have been obtained; the results are still pending. There is limited range of motion of the ankle joint, and therefore, septic arthritis should be in the differential as the patient has not been able to walk after 10 days of antibiotic. HIV. On Genvoya, stable. Insulin-dependent diabetes. Glucose has been well controlled between 115 and 180. PLAN: X-ray of ankle and foot need to be reviewed; they still are pending. Ankle MRI was obtained with and without gadolinium to rule out septic joint. If there is abnormality, please obtain a consultation from orthopedic surgery. The case has been discussed with Dr. Ming Gonzalez to follow up on MRI result. Discontinue Augmentin, Bactrim, prescribed IV vancomycin until we rule out an infected septic joint of the ankle. MTDD
[2019-11-23] MEDS: RAMELTEON 8 MG TAB (ROZEREM) PO PRN ×2 (00:17→21:37)
[2019-11-23] MEDS: traMADol 50 MG TAB PO PRN ×2 (00:51→16:52)
[2019-11-23] MEDS: oxyCODONE 5MG TAB PO PRN ×2 (02:27→07:56)
[2019-11-23] MEDS: ACETAMINOPHEN TAB 650MG DOSE (2X325MG) PO PRN (02:28)
[2019-11-23] MEDS: MORPHINE 2 MG/ML 1ML VIAL (J2270) IV PRN ×2 (03:07→12:01)
[2019-11-23] MEDS: VANCOMYCIN HCL 1,000 MG, VIAL MATE ADAPTER 1 EACH in D5W 250 ML IV SCH ×4 (05:20→17:00)
[2019-11-23 06:00] VITALS: BP 119/71
[2019-11-23 06:11] LABS: HEMATOCRIT 34.8 % (42.0-52.0); HEMOGLOBIN 11.3 g/dl (13.5-17.5); MEAN CORPUSCULAR HEMOGLOBIN 27.8 pg (27.0-33.0); MEAN CORPUSCULAR HGB CONC 32.5 g/dl (32.0-36.5); MEAN CORPUSCULAR VOLUME 85.7 fl (80.0-96.0); PLATELET COUNT, AUTOMATED 346 10^3/uL (150-450); RED BLOOD COUNT 4.06 10^6/uL (4.30-6.10); WHITE BLOOD COUNT 9.2 10^3/uL (4.0-10.0)
[2019-11-23 06:37] LABS: BLOOD UREA NITROGEN 15 MG/DL (7-18); CALCIUM LEVEL 8.1 MG/DL (8.5-10.1); CARBON DIOXIDE LEVEL 26 MEQ/L (21-32); CHLORIDE LEVEL 104 MEQ/L (98-107); CREATININE FOR GFR 0.86 MG/DL (0.70-1.30); GLOMERULAR FILTRATION RATE > 60.0 (>56); GLUCOSE, FASTING 167 MG/DL (70-100); POTASSIUM SERUM 4.5 MEQ/L (3.5-5.1); SODIUM LEVEL 135 MEQ/L (136-145)
[2019-11-23] MEDS: HumaLOG INSULIN (NovoLOG) PER UNIT SC SCH ×4 (07:55→19:57)
[2019-11-23] MEDS: ASPIRIN ENTERIC 325 MG TAB PO SCH (08:00)
[2019-11-23] MEDS: ENOXAPARIN 40MG/0.4ML SYRINGE (J1650 PER 10MG) SC SCH (08:00)
[2019-11-23] MEDS: MAGNESIUM CHLORIDE 64 MG TABCR (SLO MAG) PO SCH (08:01)
[2019-11-23] MEDS: GENVOYA PO SCH (08:01)
[2019-11-23] MEDS: NICOTINE 7 MG/24 HR TRANSDERMAL TD SCH (08:02)
[2019-11-23 14:00] VITALS: BP 140/85
--- NOTE | 2019-11-23 15:41 | IPNPDOC ---
Date Seen The patient was seen on 11/23/19. Progress Note SUBJECTIVE: Patient has same complaints of pain with ambulation. MRI of R. ankle shows split tear of R. peroneus brevis tendon with myositis and tenosynovitis. Ortho is consulted for further evaluation. Afebrile overnight. WBC 9.2. OBJECTIVE PHYSICAL EXAMINATION: VITAL SIGNS: Please see below. General: Mild distress, Alert Eyes: Normal sclera, EOMI HENT: Atraumatic Cardiovascular: normal rate Pulmonary: Clear to auscultation b/l, no wheezing GI: Soft, nontender, nondistended Skin: RLE erythema overlying chronic venous stasis darkening skin changes up to knee. No drainage noted. Neuro: CN grossly intact. No focal deficits. Strengths equal b/l. Psych: oriented x 3 LABORATORY DATA, IMAGING STUDIES, MICROBIOLOGY: Please see below. DVT prophylaxis ordered?: ASSESSMENT AND PLAN: 1. Sepsis 2/2 RLE cellulitis - failed IM rocephin in longterm and was on IV vancomycin, now changed to bactrim and Augmentin. Vancomycin is now - ID following. Augmentin BID and Bactrim DS BID for 1 week starting on 11/18. - blood and wound cultures are all negative. - Severe R. foot/leg pain. XR does not show any fracture or dislocations. MRI of R. ankle shows tear of brevis tendon with peritendenitis and tenosynovitis. - Ortho consulted for further evaluation. 2. HIV - c/w home med Genvoya. Had been restarted. 3. DM - ISS. 4. Afib w/ RVR - Was on cardizem 120mg BID CD. Has not been taking it and noncompliant at the longterm. - HR uncontrolled. Changed to higher dose immediate release until HR consistently controlled, can switch back once stable. - ASA - Monitor on Tele. 5. Hep C - previously treated. 6. hx heroin use Dispo: back to correction facility post discharge VS, I&O, 24H, Fishbone Vital Signs/I&O Vital Signs Date Time Temp Pulse Resp B/P (MAP) Pulse Ox O2 Delivery O2 Flow Rate FiO2 11/23/19 14:00 98.1 91 18 140/85 (103) 98 Room Air I&O- Last 24 Hours up to 6 AM 11/23/19 05:59 Intake Total 2030 ml Output Total 0 ml Balance 2030 ml Laboratory Data 24H LABS Laboratory Tests 2 11/22/19 16:35: Bedside Glucose (Misc Panel) 149H 11/22/19 21:31: Bedside Glucose (Misc Panel) 142H 11/23/19 05:36: Nucleated Red Blood Cells % (auto) 0.0, Anion Gap 5L, Glomerular Filtration Rate > 60.0, Calcium Level 8.1L 11/23/19 11:46: Bedside Glucose (Misc Panel) 163H CBC/BMP Laboratory Tests 11/23/19 05:36 Microbiology Microbiology 11/15/19 Wound Culture - Final, Complete 11/14/19 Gram Stain - Final, Complete 11/14/19 Wound Culture - Final, Complete 11/13/19 Blood Culture - Final, Complete NO GROWTH AFTER 5 DAYS 11/13/19 Blood Culture - Final, Complete NO GROWTH AFTER 5 DAYS TRE XIAO MD Nov 23, 2019 15:41
[2019-11-23] MEDS: oxyCODONE 5MG TAB PO SCH ×2 (18:06→23:13)
[2019-11-23] MEDS: SENOKOT S TAB PO SCH (21:37)
[2019-11-23] MEDS: AUGMENTIN 875 MG TAB PO SCH (21:37)
[2019-11-23] MEDS: BACTRIM 160MG/800MG DS TAB PO SCH (21:37)
[2019-11-23] MEDS: traMADol 50 MG TAB PO SCH (21:39)
[2019-11-23 22:00] VITALS: BP 121/71
[2019-11-24] MEDS: oxyCODONE 5MG TAB PO SCH ×6 (03:16→23:03)
[2019-11-24 06:00] VITALS: BP 137/88
[2019-11-24] MEDS: traMADol 50 MG TAB PO SCH ×3 (06:12→21:32)
[2019-11-24 06:34] LABS: HEMATOCRIT 36.3 % (42.0-52.0); HEMOGLOBIN 11.7 g/dl (13.5-17.5); MEAN CORPUSCULAR HEMOGLOBIN 27.9 pg (27.0-33.0); MEAN CORPUSCULAR HGB CONC 32.2 g/dl (32.0-36.5); MEAN CORPUSCULAR VOLUME 86.4 fl (80.0-96.0); PLATELET COUNT, AUTOMATED 346 10^3/uL (150-450); WHITE BLOOD COUNT 7.7 10^3/uL (4.0-10.0)
[2019-11-24 07:01] LABS: BLOOD UREA NITROGEN 16 MG/DL (7-18); CALCIUM LEVEL 8.6 MG/DL (8.5-10.1); CARBON DIOXIDE LEVEL 28 MEQ/L (21-32); CHLORIDE LEVEL 102 MEQ/L (98-107); CREATININE FOR GFR 0.92 MG/DL (0.70-1.30); GLOMERULAR FILTRATION RATE > 60.0 (>56); GLUCOSE, FASTING 155 MG/DL (70-100); POTASSIUM SERUM 4.7 MEQ/L (3.5-5.1); SODIUM LEVEL 131 MEQ/L (136-145)
[2019-11-24] MEDS: HumaLOG INSULIN (NovoLOG) PER UNIT SC SCH ×4 (07:30→21:00)
[2019-11-24] MEDS: NICOTINE 7 MG/24 HR TRANSDERMAL TD SCH (09:00)
[2019-11-24] MEDS: MAGNESIUM CHLORIDE 64 MG TABCR (SLO MAG) PO SCH (09:46)
[2019-11-24] MEDS: GENVOYA PO SCH (09:46)
[2019-11-24] MEDS: BACTRIM 160MG/800MG DS TAB PO SCH ×2 (09:47→21:31)
[2019-11-24] MEDS: AUGMENTIN 875 MG TAB PO SCH ×2 (09:47→21:31)
[2019-11-24] MEDS: ASPIRIN ENTERIC 325 MG TAB PO SCH (09:47)
[2019-11-24] MEDS: ENOXAPARIN 40MG/0.4ML SYRINGE (J1650 PER 10MG) SC SCH (09:50)
[2019-11-24 14:00] VITALS: BP 122/76
--- NOTE | 2019-11-24 15:54 | IPNPDOC ---
Date Seen The patient was seen on 11/24/19. Progress Note SUBJECTIVE: Patient states that pain is improved with standing orders of analgesic. Still unable to ambulate due to R. foot pain. Evaluated by ortho. Boot ordered for R. foot. Afebrile overnight. WBC 7.7. OBJECTIVE PHYSICAL EXAMINATION: VITAL SIGNS: Please see below. General: Mild distress, Alert Eyes: Normal sclera, EOMI HENT: Atraumatic Cardiovascular: normal rate Pulmonary: Clear to auscultation b/l, no wheezing GI: Soft, nontender, nondistended Skin: RLE erythema overlying chronic venous stasis darkening skin changes up to knee. No drainage noted. Skin changes are b/l but worse on the R. side. Neuro: CN grossly intact. No focal deficits. Strengths equal b/l. Psych: oriented x 3 LABORATORY DATA, IMAGING STUDIES, MICROBIOLOGY: Please see below. DVT prophylaxis ordered?: ASSESSMENT AND PLAN: 1. Sepsis 2/2 RLE cellulitis - failed IM [facility]phin in [facility] and was on IV vancomycin, now changed to bactrim and Augmentin. - ID following. Augmentin BID and Bactrim DS BID for 1 week starting on 11/18. - blood and wound cultures are all negative. - Severe R. foot/leg pain. XR does not show any fracture or dislocations. MRI of R. ankle shows tear of brevis tendon with peritendenitis and tenosynovitis. - Ortho evaluated, no surgical intervention recommended. Boot ordered, partial weight bearing to foot and continue with PT. 2. HIV - c/w home med Genvoya. Had been restarted. 3. DM - ISS. He is on metformin as outpatient and is reportedly compliant with his medications. 4. Afib w/ RVR - Was on cardizem 120mg BID CD. There was reported of noncompliance documented but I am not sure how that is possible when he is in a controlled setting. - HR labile. Changed to higher dose immediate release until HR consistently controlled, can switch back once stable. - ASA - Monitor on Tele. 5. Hep C - previously treated. 6. hx heroin use? - He states that he does not use IV drugs. Dispo: back to correction facility post discharge VS, I&O, 24H, Fishbone Vital Signs/I&O Vital Signs Date Time Temp Pulse Resp B/P (MAP) Pulse Ox O2 Delivery O2 Flow Rate FiO2 11/24/19 14:41 15 11/24/19 14:00 97.7 55 122/76 (91) 99 Room Air I&O- Last 24 Hours up to 6 AM 11/24/19 06:00 Intake Total 1550 ml Output Total 0 ml Balance 1550 ml Laboratory Data 24H LABS Laboratory Tests 2 11/23/19 16:52: Bedside Glucose (Misc Panel) 159H 11/23/19 19:46: Bedside Glucose (Misc Panel) 140H 11/24/19 05:39: Nucleated Red Blood Cells % (auto) 0.0, Anion Gap 1L, Glomerular Filtration Rate > 60.0, Calcium Level 8.6 11/24/19 11:34: Bedside Glucose (Misc Panel) 150H CBC/BMP Laboratory Tests 11/24/19 05:39 Microbiology Microbiology 11/15/19 Wound Culture - Final, Complete 11/14/19 Gram Stain - Final, Complete 11/14/19 Wound Culture - Final, Complete TRE XIAO MD Nov 24, 2019 15:54
[2019-11-24] MEDS: SENOKOT S TAB PO SCH (21:31)
[2019-11-24 22:00] VITALS: BP 116/67
[2019-11-25] MEDS: oxyCODONE 5MG TAB PO SCH ×5 (03:10→18:27)
[2019-11-25 06:00] VITALS: BP 129/71
[2019-11-25] MEDS: traMADol 50 MG TAB PO SCH ×3 (06:09→21:20)
[2019-11-25] MEDS: NICOTINE 7 MG/24 HR TRANSDERMAL TD SCH (09:00)
[2019-11-25] MEDS: ENOXAPARIN 40MG/0.4ML SYRINGE (J1650 PER 10MG) SC SCH (09:49)
[2019-11-25] MEDS: BACTRIM 160MG/800MG DS TAB PO SCH ×2 (09:49→21:20)
[2019-11-25] MEDS: MAGNESIUM CHLORIDE 64 MG TABCR (SLO MAG) PO SCH (09:49)
[2019-11-25] MEDS: HumaLOG INSULIN (NovoLOG) PER UNIT SC SCH ×4 (09:49→21:00)
[2019-11-25] MEDS: AUGMENTIN 875 MG TAB PO SCH (09:52)
[2019-11-25] MEDS: ASPIRIN ENTERIC 325 MG TAB PO SCH (09:52)
[2019-11-25] MEDS: GENVOYA PO SCH (09:52)
[2019-11-25 14:00] VITALS: BP 140/84
--- NOTE | 2019-11-25 18:20 | IPNPDOC ---
Date Seen The patient was seen on 11/25/19. Progress Note SUBJECTIVE: Patient reported no changes today. He has not been able to obtain his boot yet, pending PT treatment. Pain to ankle persistent. medication adjusted. Afebrile overnight. OBJECTIVE PHYSICAL EXAMINATION: VITAL SIGNS: Please see below. General: Mild distress, Alert Eyes: Normal sclera, EOMI HENT: Atraumatic Cardiovascular: normal rate Pulmonary: Clear to auscultation b/l, no wheezing GI: Soft, nontender, nondistended Skin: RLE erythema overlying chronic venous stasis darkening skin changes up to knee. No drainage noted. Skin changes are b/l but worse on the R. side. Neuro: CN grossly intact. No focal deficits. Strengths equal b/l. Psych: oriented x 3 LABORATORY DATA, IMAGING STUDIES, MICROBIOLOGY: Please see below. DVT prophylaxis ordered?: ASSESSMENT AND PLAN: 1. Sepsis 2/2 RLE cellulitis with tenosynovitis - failed IM rocephin [facility] and was on IV vancomycin, now changed to bactrim and Augmentin. - ID following. Will have patient on 3 weeks of Bactrim DS, dose started on 11/18. - blood and wound cultures are all negative. - Severe R. foot/leg pain. XR does not show any fracture or dislocations. MRI of R. ankle shows tear of brevis tendon with peritendenitis and tenosynovitis. - Ortho evaluated, no surgical intervention recommended. Boot ordered, weight bearing to foot as tolerated and continue with PT. 2. HIV - c/w home med Genv[facility]. Had been restarted. 3. DM - ISS. He is on metformin as outpatient and is reportedly compliant with his medications. 4. Afib w/ RVR - Was on cardizem 120mg BID CD. There was reported of noncompliance documented but I am not sure how that is possible when he is in a controlled setting. - HR labile. Changed to higher dose immediate release until HR consistently controlled, can switch back once stable. - ASA - Monitor on Tele. 5. Hep C - previously treated. 6. hx heroin use? - He states that he does not use IV drugs. Dispo: back to correction facility post discharge VS, I&O, 24H, Fishbone Vital Signs/I&O Vital Signs Date Time Temp Pulse Resp B/P (MAP) Pulse Ox O2 Delivery O2 Flow Rate FiO2 11/25/19 16:57 84 131/75 11/25/19 14:57 18 11/25/19 14:00 98.2 98 Room Air I&O- Last 24 Hours up to 6 AM 11/25/19 06:00 Intake Total 1620 ml Output Total 0 ml Balance 1620 ml Laboratory Data 24H LABS Laboratory Tests 2 11/24/19 21:01: Bedside Glucose (Misc Panel) 142H 11/25/19 06:11: Bedside Glucose (Misc Panel) 147H 11/25/19 11:18: Bedside Glucose (Misc Panel) 109H 11/25/19 16:30: Bedside Glucose (Misc Panel) 160H Microbiology Microbiology 11/15/19 Wound Culture - Final, Complete TRE XIAO MD Nov 25, 2019 18:20
--- NOTE | 2019-11-25 21:00 | IPN ---
DATE: 11/25/2019 Mr. Church is still complaining of ankle pain. He has no fever or chills. He states he has difficulty putting any pressure on his foot and has been using a cane. He is being evaluated for discharge with some physical therapy at the [facility]. An order has been ordered for his right leg. LABORATORY DATA: White count is 7.7, hemoglobin 11.7, hematocrit 36.3, platelets 346. Sodium 131, potassium 4.7, chloride 102, bicarbonate 28, BUN 16, creatinine 0.92, glucose 155, calcium 8.6, CRP 4.59 on 11/22/2019. Imaging study showed no evidence of fracture on the ankle MRI, there was tendinosis, there is a large amount of fluid in the flexor hallucis longus tendon sheath. Edema and enhancement of the subcutaneous tissue along the anterior aspect of the right distal calf and hindfoot. There is no drainable soft tissue fluid. There is a focal split tear involving the right peroneus brevis tendons just below the level of the lateral malleolus. Right Achilles tendinopathy with peritendinitis. PHYSICAL EXAMINATION: Temperature is 98.2, pulse 69, respirations 18, blood pressure 140/84, oxygen saturation 98% on room air. Right leg below knee hyperpigmented changes with some warmth. Limited range of motion of the right ankle. Normal range of motion of the knee and the toes. There is no drainage on the dressing. IMPRESSION: 1. Right lower extremity cellulitis. Has been on IV antibiotics for 11 days with different combinations. Currently is back on Augmentin and Bactrim. He had been treated with IV vancomycin from 11/13/2019 to 11/19/2019. 2. Severe right ankle pain, probably combination of tendinitis and focal split tear involving the right peroneus. The patient was seen by orthopedic surgery and they did not recommend any surgical intervention but recommended a boot to be used. The patient will need physical therapy. This is being arranged through [facility]ist service and the [facility]. PLAN: Start Celebrex 200 mg by mouth daily, cut back on narcotics. Continue Bactrim DS one tablet twice a day for 10 days, that will be a total of 21 days of therapy. Even though MRSA screen was negative and cultures were negative, I would treat him for suspected Staphylococcus aureus infection.
[2019-11-25] MEDS: CelecoXIB (CeleBREX) 100 MG CAP PO SCH (21:20)
[2019-11-25] MEDS: SENOKOT S TAB PO SCH (21:20)
[2019-11-25 22:00] VITALS: BP 113/67
[2019-11-26] MEDS: oxyCODONE 5MG TAB PO SCH ×5 (00:08→23:57)
[2019-11-26] MEDS: traMADol 50 MG TAB PO SCH ×3 (05:22→21:16)
[2019-11-26 05:58] LABS: HEMATOCRIT 37.1 % (42.0-52.0); HEMOGLOBIN 11.8 g/dl (13.5-17.5); MEAN CORPUSCULAR HEMOGLOBIN 27.3 pg (27.0-33.0); MEAN CORPUSCULAR HGB CONC 31.8 g/dl (32.0-36.5); MEAN CORPUSCULAR VOLUME 85.9 fl (80.0-96.0); PLATELET COUNT, AUTOMATED 363 10^3/uL (150-450); RED BLOOD COUNT 4.32 10^6/uL (4.30-6.10)
[2019-11-26 06:00] VITALS: BP_SYST 106; BP_DIAS 43; BP_DIAS 76
[2019-11-26 06:17] LABS: BLOOD UREA NITROGEN 25 MG/DL (7-18); C REACTIVE PROTEIN QUANTITATIV 2.53 MG/DL (0.00-0.30); CALCIUM LEVEL 8.9 MG/DL (8.5-10.1); CARBON DIOXIDE LEVEL 25 MEQ/L (21-32); CHLORIDE LEVEL 104 MEQ/L (98-107); GLOMERULAR FILTRATION RATE > 60.0 (>56); GLUCOSE, FASTING 151 MG/DL (70-100); POTASSIUM SERUM 4.7 MEQ/L (3.5-5.1); SODIUM LEVEL 135 MEQ/L (136-145)
[2019-11-26 06:24] LABS: ERYTHROCYTE SEDIMENTATION RATE 79 mm/hr (0-20)
[2019-11-26] MEDS: NICOTINE 7 MG/24 HR TRANSDERMAL TD SCH (08:05)
[2019-11-26] MEDS: BACTRIM 160MG/800MG DS TAB PO SCH ×2 (08:12→20:49)
[2019-11-26] MEDS: CelecoXIB (CeleBREX) 100 MG CAP PO SCH ×2 (08:12→20:48)
[2019-11-26] MEDS: ASPIRIN ENTERIC 325 MG TAB PO SCH (08:13)
[2019-11-26] MEDS: HumaLOG INSULIN (NovoLOG) PER UNIT SC SCH ×4 (08:13→20:44)
[2019-11-26] MEDS: ENOXAPARIN 40MG/0.4ML SYRINGE (J1650 PER 10MG) SC SCH (08:13)
[2019-11-26] MEDS: GENVOYA PO SCH (08:14)
[2019-11-26] MEDS: MAGNESIUM CHLORIDE 64 MG TABCR (SLO MAG) PO SCH (08:14)
[2019-11-26 14:00] VITALS: BP 121/75
[2019-11-26] MEDS ORDERED: OXYC-517 PO (14:22)
[2019-11-26] MEDS ORDERED: CELE100C PO (14:22)
[2019-11-26] MEDS ORDERED: TRAM50TA2 PO (14:22)
[2019-11-26] MEDS ORDERED: SULF1TAB93 PO (14:24)
--- NOTE | 2019-11-26 14:49 | DS.PDOC ---
Discharge Summary General Date of Admission Nov 13, 2019 at 12:45 Date of Discharge 11/26/19 Discharge Summary PROCEDURES PERFORMED DURING STAY: [None]. ADMITTING DIAGNOSES: 1. R. leg swelling and pain 2. HIV 3. Hx hepatitis 4. HTN 5. Afib 6. NIDDM 7. Asthma DISCHARGE DIAGNOSES: 1. Severe RLE cellulitis with R. ankle cellulitis and tenosynovitis 2. HIV 3. Hx hepatitis 4. HTN 5. Afib 6. NIDDM 7. Asthma COMPLICATIONS/CHIEF COMPLAINT: Cellulitis Of Right Lower Extremity. HISTORY OF PRESENT ILLNESS: "This is a 59-year-old male with history of atrial fibrillation, chronic left bundle branch block, mild MR, TR with normal left ventricle (LV) function on echocardiogram January 2019, asthma, diabetes, HIV, hepatitis C, noncompliant with medications, smoker, hypertension. Currently resides at the [facility] when he noted on Monday to have increasing redness, pain, and swelling of the right leg, which started by the malleolus and started to spread upwards, now involving the entire leg up to the knee. The patient said that there was increased weeping and drainage on the medial aspect of the leg. He was started in intramuscular Rocephin on 11/11/2019 but has had no significant improvement. He denied any fever or chills. At the facility, had not taken any pain medications. He said that it was pruritic, and he did scratch the area. He had a similar episode last year, where he was treated with oral antibiotics for 7 days, and abated. The patient had been walking with a cane due to difficulty with pain and bearing weight on it. He otherwise denies any purulent drainage at the site. The patient otherwise denies any chills, shortness of breath, chest pain, pressure, tightness, lightheadedness, or dizziness. Denies any diarrhea, nausea, vomiting, dysuria, urgency, frequency, polydipsia, polyphagia, changes in vision, rhinorrhea, depression, insomnia. All other systems otherwise negative. In the emergency room (ER), he was noticed to have a white count of 24.8, afebrile, sedimentation rate of 50, lactic acid of 2.5, CRP of 25.9. The patient was admitted for right lower extremity cellulitis. Ultrasound was negative for a deep venous thrombosis (DVT)." HOSPITAL COURSE: Patient was treated with IV antibiotics for severe RLE cellulitis follow by transitioning to oral antibiotics with ID's assistance. Blood and wound culture negative for any growth. Course of hospitalization patient reported severe pain on R. foot with ambulation. MRI of the R. ankle shows evidence of inflammation, focal tendon tear as well as tenosynovitis. He was evaluated by orthopedic surgery and recommend continuing with antibiotics for several weeks and does not require surgical intervention at this time. Discussed with ID and will treat patient for 3 weeks of Bactrim BID, which patient has already completed 1 week. To discharge patient with 2 more weeks. Ortho had ordered a boot for patient, which hopefully will arrive by . Initially plan to keep patient here to continue working with PT while awaiting boot for discharge. He is able to have some limited mobility with assistive device including walker and crutches. I believe his pain is genuine and will require appropriate management. I have started to taper him off the oxycodone and transitioned to celebrex and tramadol as I do not know what will be available for him at the correction's facility. He may need these medications adjusted post discharge. DISCHARGE MEDICATIONS: Please see below. ALLERGIES: Please see below. PHYSICAL EXAMINATION ON DISCHARGE: VITAL SIGNS: Please see below. General: Mild distress, Alert Eyes: Normal sclera, EOMI HENT: Atraumatic Cardiovascular: normal rate Pulmonary: Clear to auscultation b/l, no wheezing GI: Soft, nontender, nondistended Skin: RLE erythema overlying chronic venous stasis darkening skin changes up to knee. No drainage noted. Skin changes are b/l but worse on the R. side. Neuro: CN grossly intact. No focal deficits. Strengths equal b/l. Psych: oriented x 3 LABORATORY DATA: Please see below. IMAGING: R. ankle MRI- IMPRESSION: 1. Focal split tear involving the right peroneus brevis tendon just below the level of the lateral malleolus. 2. Mildly increased T2 signal in the right extensor digitorum longus, quadratus plantae, and abductor digiti minimi muscles, which may represent a grade 1 strain of these muscles or myositis. 3. Right Achilles enthesopathy and peritendinitis. 4. Severe tendinosis involving the distal portion of the right tibialis posterior tendon. 5. Right flexor hallucis longus tenosynovitis. 6. Edema and enhancement in the subcutaneous tissues predominantly along the anterior aspect of the right distal calf and along the medial lateral aspect of the right hindfoot, which may represent cellulitis, lymphedema, or bruising. R. foot XR- Degenerative changes with no fracture or dislocation. R. Tib/fib XR- no fracture or dislocation RLE CT- There is mild narrowing of the medial knee joint. There is mild calcification at the superior and inferior poles of the patella at tendinous insertion sites. There appear to be old avulsion fractures of the medial and lateral malleoli. The ankle mortise is anatomic. No acute fracture or dislocation is seen. There is no evidence of osseous destruction or periosteal reaction. There is diffuse soft tissue edema. I suspect diffuse cellulitis. No focal fluid collection is seen. ACTIVITY: [As tolerated with assistive device and boot when available]. DISCHARGE PLAN: c/w Pain control, adjust medication as needed. Monitor DM control closely. f/u PCP, Ortho, ID. Complete 2 more weeks of Bactrim. c/w PT. Boot when available. DISPOSITION: Correction facility. DISCHARGE INSTRUCTIONS: c/w Pain control, adjust medication as needed. Monitor DM control closely. f/u PCP, Ortho, ID. Complete 2 more weeks of Bactrim. c/w PT. Boot when available. ITEMS TO FOLLOWUP ON ON OUTPATIENT: 1. None DISCHARGE CONDITION: [Stable]. TIME SPENT ON DISCHARGE: 40 minutes. Vital Signs/I&Os Vital Signs Date Time Temp Pulse Resp B/P (MAP) Pulse Ox O2 Delivery O2 Flow Rate FiO2 11/26/19 13:59 17 Room Air 11/26/19 08:13 103 145/84 11/26/19 06:00 97.0 99 I&O- Last 24 Hours up to 6 AM 11/26/19 06:00 Intake Total 2280 ml Output Total 0 ml Balance 2280 ml Laboratory Data Labs 24H Laboratory Tests 2 11/25/19 16:30: Bedside Glucose (Misc Panel) 160H 11/25/19 20:42: Bedside Glucose (Misc Panel) 214H 11/26/19 05:15: Nucleated Red Blood Cells % (auto) 0.0, Erythrocyte Sedimentation Rate 79H, Anion Gap 6L, Glomerular Filtration Rate > 60.0, Calcium Level 8.9, C-Reactive Protein, Quantitative 2.53H 11/26/19 11:21: Bedside Glucose (Misc Panel) 133H CBC/BMP Laboratory Tests 11/26/19 05:15 FSBS Laboratory Tests Test 11/25/19 16:30 11/25/19 20:42 11/26/19 11:21 Range/Units Bedside Glucose (Misc Panel) 160 214 133 70-105 MG/DL Discharge Medications Scheduled Amlodipine Besylate (Amlodipine Besylate) 10 Mg Tablet, 10 MG PO DAILY, (Reporte d) Aspirin (Aspirin EC) 325 Mg Tablet.dr, 325 MG PO DAILY, (Reported) Celecoxib (Celebrex) 100 Mg Capsule, 100 MG PO BID Diltiazem HCl (Diltiazem 12Hr ER) 120 Mg Cap.er.12h, 120 MG PO BID, (Reported) Elviteg/Cob/Emtri/Tenof Alafen (Genvoya Tablet) 1 Each Tablet, 1 TAB PO DAILY, (Reported) Losartan Potassium (Cozaar) 50 Mg Tablet, 50 MG PO DAILY, (Reported) Metformin HCl (Metformin HCl) 500 Mg Tablet, 500 MG PO BID, (Reported) Sulfamethoxazole/Trimethoprim (Sulfamethoxazole-Tmp Ds Tablet) 1 Each Tablet, 1 TAB PO BID Tramadol HCl (Tramadol HCl) 50 Mg Tablet, 50 MG PO Q8H Scheduled PRN Acetaminophen (Acetaminophen) 325 Mg Tablet, 650 MG PO QID PRN for PAIN, (Reported) Albuterol Sulfate (Proventil Hfa) 6.7 Gm Hfa.aer.ad, 2 PUFFS INH QID PRN for SHORTNESS OF BREATH, (Reported) Ibuprofen (Ibu-200) 200 Mg Tablet, 600 MG PO Q6H PRN for PAIN, (Reported) Allergies Coded Allergies: No Known Allergies (Unverified , 11/13/19) TRE XIAO MD Nov 26, 2019 14:49
[2019-11-26] MEDS: SENOKOT S TAB PO SCH (20:49)
[2019-11-26 22:00] VITALS: BP 118/64
[2019-11-27 06:00] VITALS: BP 128/79
[2019-11-27] MEDS: oxyCODONE 5MG TAB PO SCH (06:45)
[2019-11-27] MEDS: traMADol 50 MG TAB PO SCH (06:46)
[2019-11-27] MEDS: CelecoXIB (CeleBREX) 100 MG CAP PO SCH (08:59)
[2019-11-27] MEDS: NICOTINE 7 MG/24 HR TRANSDERMAL TD SCH (09:00)
[2019-11-27] MEDS: ASPIRIN ENTERIC 325 MG TAB PO SCH (09:00)
[2019-11-27] MEDS: BACTRIM 160MG/800MG DS TAB PO SCH (09:00)
[2019-11-27 09:01] VITALS: BP 130/78
[2019-11-27] MEDS: MAGNESIUM CHLORIDE 64 MG TABCR (SLO MAG) PO SCH (09:02)
[2019-11-27] MEDS: GENVOYA PO SCH (09:02)
[2019-11-27] MEDS: HumaLOG INSULIN (NovoLOG) PER UNIT SC SCH (09:02)
[2019-11-27] MEDS: ENOXAPARIN 40MG/0.4ML SYRINGE (J1650 PER 10MG) SC SCH (09:03)
--- NOTE | 2019-11-27 16:00 | CR ---
DATE OF CONSULTATION: 11/23/2019 CHIEF COMPLAINT: Asked to evaluate left leg and ankle abnormal Magnetic Resonance Imaging (MRI)I. HISTORY: 59-year-old gentleman insulin-dependent diabetic, human immunodeficiency virus (HIV) positive, hepatitis C positive, history of noncompliance with diabetic medications that has continued through this admission until the last day or two with refusal of insulin and blood sugars ranging up to the 300 range. He had difficulty walking, feels that he had a spider bite, was started on Rocephin without improvement. Had an episode of some sort of infection in the extremity a year ago treated with oral antibiotic. I reviewed his admitting history, including asthma, diabetes, HIV, hepatitis C, active nicotine use, chronic atrial fibrillation, left bundle branch block and other issues. SOCIAL HISTORY: He is incarcerated in correctional facility. 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 ALLERGIES: No known drug allergies. MEDICATIONS INCLUDE: - Norvasc -ceftriaxone FAMILY HISTORY: Not contributory REVIEW OF SYSTEMS: He is only complaining of left leg pain. He is not complaining of headache, shortness of breath, fever, chills, constitutional symptoms, nauseous, or other problems. He admits to his diabetes. IMAGING STUDIES: Includes plain films of the foot done 11/21 reflecting some degenerative changes and spurring chronic appearance without a fracture. Imaging studies have been negativity acute process. CT scan right leg suggest cellulitis. Ultrasound right lower extremity. No deep vein thrombosis. Multiple nodes noted in the inguinal area. Ankle Magnetic Resonance Imaging (MRI) done 11/22/2019. I do not appreciate an operative lesion. Local split in the right peroneus brevis tendon that prompted our consultation. This would be a nonoperative lesion. There are also inflammatory changes and inflammatory process. Right Achilles peritendinitis. Flexor hallucis longus tenosynovitis with edema along the anterior right calf suggestive of cellulitis. LABORATORY: White count has progressively decreased from 11/18 where was 13 down to 9.2. In fact ,on 11/13 white count was 17. C-reactive protein also trending downward overall. It was 12 on 11/14, 5.9 on 11/18, 3.8 on 11/20, 4.6 on 11/21. Methicillin-resistant Staphylococcus aureus (MRSA), PCR, MRSA not detected. Blood sugars around the time of admission was between 200 and 300. More recent, over the last 48 hours have ranged from 170 to a low of 142. Today at noon was 163. Culture of right leg wound, no growth, no organisms, results were on 11/15/2019. VITAL SIGNS: He has been afebrile for the past 48 hours. CLINICAL EXAMINATION: He is alert and oriented. Mood and affect seem to be appropriate. Primarily language is [place], but the patient seems to be fluent in [place]. He is not in distress. He is not short of breath. His abdomen is not distended. Extremity: There is a Whitten dressing. This is not removed. Toes were . With palpation of the calf during the examination that was not tender. There is an outline of where the cellulitis had been around knee and that seems to be retreating. IMPRESSION: Cellulitis right lower extremity, chronic changes, interval improvement on last study with intravenous antibiotics. RECOMMENDATIONS: Considering this patient's with insulin-dependent diabetes, noncompliance with medication and other medical comorbidities, his management may be present a challenge. From a surgical perspective, in my opinion it is likely that management of this with elevation and intravenous antibiotics over the course of the next 6 to 8 weeks would be the most appropriate option. I would be concerned of wound healing issues with any type of operative intervention. Over the course of this treatment, we may need to revisit an MRI perhaps in about 4 to 6 weeks to evaluate the inflammation around the flexor hallucis tendon. I did explain the patient that I did not now recommend surgery and that I do recommend continuous antibiotics over the next 6 to 8 weeks. Thank you for this interesting consultation.
== END 2019-11-27 10:39 | disposition home or self-care (01) | DRG 892 ==
LOC: M ED 10:36 → M ED INP 12:45 → ENRESERV 13:17 → M MSPAV 14:17
PROVIDERS: ADMIT General Practice; ATTEND Student in an Organized Health Care Education/Training Program
DX: A41.9 Sepsis, unspecified organism (principal); B20 Human immunodeficiency virus [HIV] disease; L03.115 Cellulitis of right lower limb; I48.20 Chronic atrial fibrillation, unspecified; I08.1 Rheumatic disorders of both mitral and tricuspid valves; E11.9 Type 2 diabetes mellitus without complications; J45.909 Unspecified asthma, uncomplicated; I10 Essential (primary) hypertension; M65.861 Other synovitis and tenosynovitis, right lower leg; I44.7 Left bundle-branch block, unspecified; Z91.19 Patient's noncompliance with other medical treatment and regimen; F17.200 Nicotine dependence, unspecified, uncomplicated; Z79.82 Long term (current) use of aspirin; Z79.899 Other long term (current) drug therapy; B18.2 Chronic viral hepatitis C